=== PATIENT | female | born 1935 | race Caucasian/White ===

== ENCOUNTER 2016-10-31 12:57 | Emergency (ER) | payer MEDICARE, OTHER ==
[2016-10-31 13:04] VITALS: BP 136/57
[2016-10-31 13:43] LABS: CHLORIDE,CL 94 mmol/L (101-111); SODIUM,NA 132 mmol/L (135-145)
--- NOTE | 2016-10-31 13:47 | EDM.PDOC ---
ED HPI GENERAL MEDICAL PROBLEM - General Chief Complaint: Syncope Stated Complaint: IN BY AMBULANCE Time Seen by Provider: 10/31/16 13:30 Source of Information: Reports: Patient History Limitations: Reports: No Limitations - History of Present Illness INITIAL COMMENTS - FREE TEXT/NARRATIVE: This 81 yo female patient was brought to the ED by Danielle Archuleta due to a brief episode of syncope. The patient reports she just finished eating and was seated in her wheelchair when her symptoms started. The patient reports similar symptoms in the past, but has not had any episodes over the past several months. The patient reports she is feeling normal at this time. The patient currently lives in the [facility]. Onset: Today, Sudden Duration: Minutes:, Resolved Prior to Arrival Location: Reports: Generalized Quality: Reports: Other Severity: Moderate Improves with: Reports: None Worsens with: Reports: None Associated Symptoms: Reports: Syncope - Related Data Allergies Allergy/AdvReac Type Severity Reaction Status Date / Time chloramphenicol Allergy Mild Rash Verified 10/31/16 13:00 lisinopril Allergy Cough Verified 10/31/16 13:00 Home Meds: Home Meds RX: Aspirin [Halfprin] 81 mg PO DAILY 08/10/13 [History] RX: Atenolol [Tenormin] 75 mg PO DAILY 08/10/13 [History] RX: Insulin Aspart [NovoLOG] 8 unit SQ TID 08/10/13 [History] RX: Ascorbate Calcium [Vitamin C] 500 mg PO BID 09/06/13 [History] RX: Cranberry 500 mg PO DAILY 09/06/13 [History] RX: Multivitamin [Daily Multiple Vitamin] 1 tab PO DAILY 09/06/13 [History] RX: Magnesium Oxide 1 tab PO DAILY 12/01/14 [History] RX: Pantoprazole [ProTONIX] 40 mg PO DAILY 12/01/14 [History] RX: Acetaminophen [Tylenol Extra Strength] 500 mg PO QID PRN 09/17/15 [History] RX: Insulin NPH Human Isophane [Novolin N] 20 units SQ DAILY 02/13/16 [History] RX: Nystatin/Triamcinolone Crm [Mycolog Crm] 1 applic TOP ASDIRECTED PRN [History] RX: Acetaminophen [Tylenol] 650 mg PO Q4H PRN #0 tablet 02/14/16 [Rx] Furosemide [Furosemide] 20 mg PO DAILY 02/20/16 [History] Potassium Chloride [Klor-Con M10] 10 meq PO BIDMEALS 02/20/16 [History] RX: Losartan [Cozaar] 100 mg PO DAILY 02/20/16 [History] Past Medical History HEENT History: Reports: Impaired Vision, Other (See Below) Other HEENT History: wears glasses Cardiovascular History: Reports: High Cholesterol, Hypertension Respiratory History: Reports: None Gastrointestinal History: Reports: Fecal Incontinence Genitourinary History: Reports: Acute Renal Failure, Diabetic Nephropathy, Hydronephrosis, Pyelonephritis, Urinary Incontinence, UTI, Recurrent, Other ( See Below) Other Genitourinary History: stents 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 - Infectious Disease History Infectious Disease History: Reports: MRSA Other Infectious Disease History: ? - Past Surgical History Head Surgeries/Procedures: Reports: None HEENT Surgical History: Reports: Adenoidectomy, Cataract Surgery, Tonsillectomy Respiratory Surgical History: Reports: None Female Surgical History: Reports: Breast Biopsy Musculoskeletal Surgical History: Reports: Shoulder Surgery, Other (See Below) Oncologic Surgical History: Reports: Biopsy of Breast Social & Family History - Family History Family Medical History: Noncontributory Cardiac: Reports: OR Oncologic: Reports: Breast, Other (See Below) Other Oncologic Family History: mother-2 types - Tobacco Use Smoking Status *Q: Never Smoker Years of Tobacco use: 10 Used Tobacco, but Quit: Yes Month Tobacco Last Used: Second Hand Smoke Exposure: No - Caffeine Use Caffeine Use: Reports: Coffee - Alcohol Use Days Per Week of Alcohol Use: 0 - Recreational Drug Use Recreational Drug Use: No - Living Situation & Occupation Living situation: Reports: Occupation: Retired ED ROS GENERAL - Review of Systems Review Of Systems: ROS reveals no pertinent complaints other than HPI. - Physical Exam Exam: See Below Exam Limited By: No Limitations General Appearance: Alert, WD/WN, No Apparent Distress Eye Exam: Bilateral Eye: EOMI, Globe Laceration, PERRL Ears: Normal External Exam, Normal Canal, Hearing Grossly Normal, Normal TMs Nose: Normal Inspection, Normal Mucosa, No Blood Throat/Mouth: Normal Inspection, Normal Lips, Normal Teeth, Normal Gums, Normal Oropharynx, Normal Voice, No Airway Compromise Head Exam: Atraumatic, Normocephalic Neck: Normal Inspection, Supple, Non-Tender, Full Range of Motion Respiratory/Chest: No Respiratory Distress, Lungs Clear, Normal Breath Sounds, No Accessory Muscle Use, Chest Non-Tender Cardiovascular: Normal Peripheral Pulses, Regular Rate, Rhythm, No Edema, No Gallop, No JVD, No Murmur, No Rub GI/Abdominal: Normal Bowel Sounds, Soft, Non-Tender, No Organomegaly, No Distention, No Abnormal Bruit, No Mass (Female) Exam: Deferred Rectal (Female) Exam: Deferred Neuro Exam (Abbreviated): Alert, Oriented, CN II-XII Intact, Normal Cognition, No Motor/Sensory Deficits Back Exam: Normal Inspection, Full Range of Motion, NT Extremities: Normal Inspection, Normal Range of Motion, Non-Tender, No Pedal Edema, Normal Capillary Refill Psychiatric: Normal Affect, Normal Mood Skin Exam: Other (numerous lesions on her scalp and abdomen. The patient is currently under specialist care for lesions. ) Course - Vital Signs Last Recorded V/S: Last Vital Signs Temp 36.5 C 10/31/16 13:01 Pulse 63 10/31/16 13:01 Resp 20 10/31/16 13:01 BP 136/57 L 10/31/16 13:01 Pulse Ox 100 10/31/16 13:01 Orthostatic Blood Pressure [ 116/98 Standing] Orthostatic Blood Pressure [ 128/72 Sitting] Orthostatic Blood Pressure [ 138/42 Supine] - Orders/Labs/Meds Orders: Active Orders 24 hr Category Date Time Status EKG 12 Lead [EKG Documentation Completion] [RC] STAT Care 10/31/16 13:06 Active CBC WITH AUTO DIFF [HEME] Urgent Lab 10/31/16 13:10 Ordered MANUAL DIFFERENTIAL QA/NC [HEME] Urgent Lab 10/31/16 13:15 Results Labs: Laboratory Tests 10/31/16 10/31/16 Range/Units 13:15 13:15 WBC 11.7 H (5.0-10.0) 10^3/uL RBC 3.34 L (4.2-5.4) 10^6/uL Hgb 9.3 L (12.0-16.0) g/dL Hct 28.9 L (37.0-47.0) % MCV 86.5 (80-100) fL MCH 27.8 (27.0-34.0) pg MCHC 32.2 L (33.0-35.0) g/dL Plt Count 285 (150-450) 10^3/uL Neut % (Auto) 74.5 (42.2-75.2) % Lymph % (Auto) 16.0 L (20.5-50.1) % Josephine % (Auto) 8.3 H (2-8) % Eos % (Auto) 1.1 (1.0-3.0) % Baso % (Auto) 0.1 (0.0-1.0) % Add Manual Diff Yes Sodium 132 L (135-145) mmol/L Potassium 4.6 (3.6-5.0) mmol/L Chloride 94 L (101-111) mmol/L Carbon Dioxide 24.0 (21.0-31.0) mmol/L Anion Gap 18.6 BUN 34 H (7-18) mg/dL Creatinine 1.7 H (0.6-1.3) mg/dL Est Cr Clr Drug Dosing 23.88 mL/min Estimated GFR (MDRD) 29 BUN/Creatinine Ratio 20.00 Glucose 331 H (74-105) mg/dL Calcium 8.7 (8.4-10.2) mg/dl Total Bilirubin 0.6 (0.2-1.0) mg/dL AST 24 (10-42) IU/L ALT 21 (10-60) IU/L Alkaline Phosphatase 51 (42-121) IU/L Troponin I < 0.02 (0.00-0.02) ng/ml Total Protein 6.0 L (6.7-8.2) g/dl Albumin 2.9 L (3.2-5.5) g/dl Globulin 3.1 Albumin/Globulin Ratio 0.94 Departure - Departure Time of Disposition: 13:52 Disposition: Home, Self-Care 01 Condition: Fair Clinical Impression: Vasovagal syncope - Discharge Information Instructions: Syncope, [id number] Forms: ED Department Discharge Care Plan Goals: The patient was advised of the examination, lab and EKG results during the visit. The patient was encouraged to continue to monitor for any additional symptoms. If the patient has any additional symptoms or concerns, the patient should follow-up with her primary care facility or return to the emergency department. - My Orders Last 24 Hours: My Active Orders 10/31/16 13:06 EKG 12 Lead [EKG Documentation Completion] [RC] STAT 10/31/16 13:10 CBC WITH AUTO DIFF [HEME] Urgent 10/31/16 13:15 MANUAL DIFFERENTIAL QA/NC [HEME] Urgent - Assessment/Plan Last 24 Hours: My Active Orders 10/31/16 13:06 EKG 12 Lead [EKG Documentation Completion] [RC] STAT 10/31/16 13:10 CBC WITH AUTO DIFF [HEME] Urgent 10/31/16 13:15 MANUAL DIFFERENTIAL QA/NC [HEME] Urgent
--- NOTE | 2016-11-02 00:19 | EKG ---
10/31/2016 - NED TODD I reviewed the EKG and agree with the machine's reading. [facility] /[id number]
== END 2016-10-31 15:45 | disposition home or self-care (01) ==
LOC: DL.ED 12:57
DX: R55 Syncope and collapse (principal); E78.00 Pure hypercholesterolemia, unspecified; I10 Essential (primary) hypertension; M19.90 Unspecified osteoarthritis, unspecified site; E11.21 Type 2 diabetes mellitus with diabetic nephropathy; Z88.8 Allergy status to other drugs, medicaments and biological substances; Z79.899 Other long term (current) drug therapy; Z79.82 Long term (current) use of aspirin; Z79.4 Long term (current) use of insulin; Z87.440 Personal history of urinary (tract) infections; Z98.49 Cataract extraction status, unspecified eye; Z98.890 Other specified postprocedural states
CPT/HCPCS: 36415; 80053; 84484; 85025; 93005; 93010; 99282; 99284

== ENCOUNTER 2017-03-03 12:34 | Emergency (ER) | payer MEDICARE, OTHER ==
[2017-03-03 12:57] VITALS: BP 148/58
--- NOTE | 2017-03-03 13:06 | EDM.PDOC ---
ED HPI GENERAL MEDICAL PROBLEM - General Chief Complaint: General Stated Complaint: AM Time Seen by Provider: 03/03/17 13:01 Source of Information: Reports: Patient, EMS Notes Reviewed History Limitations: Reports: No Limitations - History of Present Illness INITIAL COMMENTS - FREE TEXT/NARRATIVE: 81 yo white female w/ syncopal episode while in wheelchair. Symptoms for last 2 years and this is the second in one week. The episodes occur when she is at lunch sitting in wheel chair. Today the episode lasted 15 mins. and she awoke glassy eyed and slight drool to left side of mouth. Pt states she has had no work-up to determine cause Onset: Today Onset Date: 03/03/17 Onset Time: 11:40 Duration: Hour(s): Location: Reports: Generalized Severity: Moderate Improves with: Reports: None Worsens with: Reports: None Context: Reports: Other (syncope) Associated Symptoms: Reports: No Other Symptoms - Related Data Allergies Allergy/AdvReac Type Severity Reaction Status Date / Time chloramphenicol Allergy Mild Rash Verified 10/31/16 13:00 lisinopril Allergy Cough Verified 10/31/16 13:00 Home Meds: Home Meds Aspirin [Halfprin] 81 mg PO DAILY 08/10/13 [History] Atenolol [Tenormin] 100 mg PO DAILY 08/10/13 [History] Insulin Aspart [NovoLOG] 8 unit SQ TID 08/10/13 [History] Ascorbate Calcium [Vitamin C] 500 mg PO BID 09/06/13 [History] Cranberry 500 mg PO DAILY 09/06/13 [History] Multivitamin [Daily Multiple Vitamin] 1 tab PO DAILY 09/06/13 [History] Magnesium Oxide 1 tab PO BID 12/01/14 [History] Pantoprazole [ProTONIX] 40 mg PO DAILY 12/01/14 [History] Acetaminophen [Tylenol Extra Strength] 1,000 mg PO QID PRN 09/17/15 [History] Insulin NPH Human Isophane [Novolin N] 20 units SQ DAILY 02/13/16 [History] Nystatin/Triamcinolone Crm [Mycolog Crm] 1 applic TOP ASDIRECTED PRN 02/13/16 [ History] Acetaminophen [Tylenol] 650 mg PO Q4H PRN #0 tablet 02/14/16 [Rx] Furosemide [Furosemide] 40 mg PO DAILY 02/20/16 [History] Losartan [Cozaar] 100 mg PO DAILY 02/20/16 [History] Potassium Chloride [Klor-Con M10] 10 meq PO BIDMEALS 02/20/16 [History] Doxycycline Hyclate 100 mg PO BID 03/03/17 [History] azaTHIOprine [Imuran] 50 mg PO DAILY 03/03/17 [History] hydrOXYzine HCl [Atarax] 10 mg PO PRN 03/03/17 [History] predniSONE [Prednisone] 17.5 mg PO DAILY 03/03/17 [History] Past Medical History HEENT History: Reports: Cataract, Sinusitis Cardiovascular History: Reports: High Cholesterol, Hypertension Respiratory History: Reports: None Gastrointestinal History: Reports: Fecal Incontinence Genitourinary History: Reports: Acute Renal Failure, Diabetic Nephropathy, Hydronephrosis, Pyelonephritis, Urinary Incontinence, UTI, Recurrent, Other ( See Below) Other Genitourinary History: nephrostomy tubes, ureterostomy 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: Musculoskeletal History: Reports: Arthritis, Other (See Below) Other Musculoskeletal History: DJD Neurological History: Reports: None Psychiatric History: Reports: None Endocrine/Metabolic History: Reports: Diabetes, Type II, IDDM Hematologic History: Reports: None Immunologic History: Reports: None Oncologic (Cancer) History: Reports: Squamous Cell Carcinoma Other Oncologic History: questionable L) breast ca, SCC-lip Dermatologic History: Reports: Eczema, Other (See Below) Other Dermatologic History: reaction to metal chain (necklace) - Infectious Disease History Infectious Disease History: Reports: MRSA Other Infectious Disease History: ? - Past Surgical History Head Surgeries/Procedures: Reports: None HEENT Surgical History: Reports: Adenoidectomy, Cataract Surgery, Tonsillectomy Respiratory Surgical History: Reports: None Female Surgical History: Reports: Breast Biopsy Musculoskeletal Surgical History: Reports: Shoulder Surgery, Other (See Below) Oncologic Surgical History: Reports: Biopsy of Breast Social & Family History - Family History Family Medical History: Noncontributory Cardiac: Reports: [place] Oncologic: Reports: Breast, Other (See Below) Other Oncologic Family History: mother-2 types - Tobacco Use Smoking Status *Q: Never Smoker Years of Tobacco use: 10 Used Tobacco, but Quit: Yes Month Tobacco Last Used: Second Hand Smoke Exposure: No - Caffeine Use Caffeine Use: Reports: Coffee - Alcohol Use Days Per Week of Alcohol Use: 0 - Recreational Drug Use Recreational Drug Use: No - Living Situation & Occupation Living situation: Reports: Occupation: Retired ED ROS GENERAL - Review of Systems Review Of Systems: See Below Constitutional: Reports: No Symptoms HEENT: Reports: No Symptoms Respiratory: Reports: No Symptoms Cardiovascular: Reports: No Symptoms Endocrine: Reports: No Symptoms GI/Abdominal: Reports: No Symptoms : Reports: No Symptoms Musculoskeletal: Reports: No Symptoms Skin: Reports: No Symptoms Neurological: Reports: Syncope Psychiatric: Reports: No Symptoms Hematologic/Lymphatic: Reports: No Symptoms Immunologic: Reports: No Symptoms - Physical Exam Exam: See Below Exam Limited By: No Limitations General Appearance: Alert, WD/WN, No Apparent Distress Eye Exam: Bilateral Eye: EOMI, PERRL Ears: Normal External Exam Nose: Normal Inspection Throat/Mouth: Normal Inspection Head Exam: Atraumatic, Normocephalic Neck: Normal Inspection, Supple Respiratory/Chest: No Respiratory Distress, Lungs Clear Cardiovascular: Normal Peripheral Pulses, Regular Rate, Rhythm GI/Abdominal: Normal Bowel Sounds, Soft, Non-Tender Neuro Exam (Abbreviated): Alert, Oriented, CN II-XII Intact, Normal Cognition Back Exam: Normal Inspection Extremities: Pedal Edema (1-2+) Psychiatric: Normal Affect, Normal Mood Skin Exam: Warm, Dry, Intact, Normal Color, No Rash Course - Vital Signs Last Recorded V/S: Last Vital Signs Temp 36.6 C 03/03/17 12:54 Pulse 66 03/03/17 12:54 Resp 18 03/03/17 12:54 BP 148/58 H 03/03/17 12:54 Pulse Ox 100 03/03/17 12:54 - Orders/Labs/Meds Orders: Active Orders 24 hr Category Date Time Status Head wo Cont [CT] Urgent Exams 03/03/17 13:07 Taken CORTISOL [REF] Stat Lab 03/03/17 13:20 Received Sodium Chloride 0.9% [Normal Saline] 500 ml Med 03/03/17 13:15 Active IV ASDIRECTED Medication Orders Sodium Chloride (Normal Saline) 500 mls @ 100 mls/hr IV ASDIRECTED KEYA Labs: Laboratory Tests 03/03/17 03/03/17 03/03/17 Range/Units 13:20 13:20 14:40 WBC 11.4 H (5.0-10.0) 10^3/uL RBC 3.28 L (4.2-5.4) 10^6/uL Hgb 9.5 L (12.0-16.0) g/dL Hct 30.2 L (37.0-47.0) % MCV 92.1 D (80-100) fL MCH 29.0 (27.0-34.0) pg MCHC 31.5 L (33.0-35.0) g/dL Plt Count 316 (150-450) 10^3/uL Neut % (Auto) 70.9 (42.2-75.2) % Lymph % (Auto) 16.3 L (20.5-50.1) % Taylor % (Auto) 11.5 H (2-8) % Eos % (Auto) 1.0 (1.0-3.0) % Baso % (Auto) 0.3 (0.0-1.0) % Sodium 135 (135-145) mmol/L Potassium 3.5 L (3.6-5.0) mmol/L Chloride 96 L (101-111) mmol/L Carbon Dioxide 28.0 (21.0-31.0) mmol/L Anion Gap 14.5 BUN 32 H (7-18) mg/dL Creatinine 1.6 H (0.6-1.3) mg/dL Est Cr Clr Drug Dosing 25.38 mL/min Estimated GFR (MDRD) 31 BUN/Creatinine Ratio 20.00 Glucose 67 L (74-105) mg/dL POC Glucose 50 L (83-110) mg/dl Calcium 8.9 (8.4-10.2) mg/dl Total Bilirubin 0.5 (0.2-1.0) mg/dL AST 36 (10-42) IU/L ALT 28 (10-60) IU/L Alkaline Phosphatase 83 (42-121) IU/L Total Protein 6.2 L (6.7-8.2) g/dl Albumin 3.0 L (3.2-5.5) g/dl Globulin 3.2 Albumin/Globulin Ratio 0.94 Meds: Medications Generic Name Dose Route Start Last Admin Trade Name Freq PRN Reason Stop Dose Admin Sodium Chloride 500 mls @ 100 mls/hr 03/03/17 13:15 Normal Saline IV ASDIRECTED KEYA Departure - Departure Time of Disposition: 14:47 Disposition: Home, Self-Care 01 Condition: Good Clinical Impression: CKD (chronic kidney disease) stage 4, GFR 15-29 ml/min Syncope Qualifiers: Syncope type: unspecified Qualified Code(s): R55 - Syncope and collapse Anemia Qualifiers: Anemia type: unspecified type Qualified Code(s): D64.9 - Anemia, unspecified Malnutrition Qualifiers: Malnutrition type: unspecified type Qualified Code(s): E46 - Unspecified protein-calorie malnutrition - Discharge Information Forms: ED Department Discharge Additional Instructions: Rest Eat all meals F/U w/ PCP Sunday ( Son states he will take patient to her PCP on Sunday - My Orders Last 24 Hours: My Active Orders 03/03/17 13:07 Head wo Cont [CT] Urgent 03/03/17 13:15 Sodium Chloride 0.9% [Normal Saline] 500 ml IV ASDIRECTED 03/03/17 13:20 CORTISOL [REF] Stat - Assessment/Plan Last 24 Hours: My Active Orders 03/03/17 13:07 Head wo Cont [CT] Urgent 03/03/17 13:15 Sodium Chloride 0.9% [Normal Saline] 500 ml IV ASDIRECTED 03/03/17 13:20 CORTISOL [REF] Stat
[2017-03-03] MEDS ORDERED: Sodium Chloride 0.9% 500 ML IV SCH (13:15)
--- NOTE | 2017-03-06 11:31 | EKG ---
03/03/2017 - PEYTONNED GUILLERMO - TIME: 1318 hours. EKG shows normal sinus rhythm. There is borderline left axis deviation. [facility] /[id number]
== END 2017-03-03 15:10 | disposition home or self-care (01) ==
LOC: DL.ED 12:34
DX: R55 Syncope and collapse (principal); I12.9 Hypertensive chronic kidney disease with stage 1 through stage 4 chronic kidney disease, or unspecified chronic kidney disease; E11.22 Type 2 diabetes mellitus with diabetic chronic kidney disease; N18.4 Chronic kidney disease, stage 4 (severe); D64.9 Anemia, unspecified; E46 Unspecified protein-calorie malnutrition; Z88.8 Allergy status to other drugs, medicaments and biological substances; Z79.82 Long term (current) use of aspirin; Z79.4 Long term (current) use of insulin; Z79.899 Other long term (current) drug therapy; Z87.891 Personal history of nicotine dependence
CPT/HCPCS: 36415; 70450; 80053; 82533; 82962; 85025; 99284

== ENCOUNTER 2017-12-30 14:07 | Emergency (ER) | payer MEDICARE, OTHER ==
[2017-12-30 14:45] VITALS: BP 148/83
--- NOTE | 2017-12-30 15:50 | EDM.PDOC ---
ED HPI GENERAL MEDICAL PROBLEM - General Chief Complaint: Lower Extremity Injury/Pain Stated Complaint: FELL OUT OF WHEELCHAIR [id number] Time Seen by Provider: 12/30/17 16:05 Source of Information: Reports: Patient, Family, RN, RN Notes Reviewed History Limitations: Reports: No Limitations - History of Present Illness INITIAL COMMENTS - FREE TEXT/NARRATIVE: Pt to ER with her son with c/o a fall on Sunday evening. Pt states she is wheelchair bound due to diabetic neuropathy and previous broken hip, and lives with her son. Patient states she was sitting in the kitchen cleaning beans from the garden when she dropped something and leaned over to pick it up. She fell out of her wheelchair and laid on the floor until was found by her son (an hour or so). Patient denies hitting her head or being knocked out. Patient states she felt well on Sunday, no pain. States when she woke up this morning she was having some pain with transferring. Patient has bilateral nephrostomy tubes. Patient denies sever discomfort at this time. Onset: Sudden Onset Date: 12/28/17 Right Upper Leg Pain Score (Numeric/FACES): 7 - Related Data Allergies Allergy/AdvReac Type Severity Reaction Status Date / Time chloramphenicol Allergy Mild Rash Verified 10/31/16 13:00 lisinopril Allergy Cough Verified 10/31/16 13:00 Home Meds: Home Meds Aspirin [Halfprin] 81 mg PO DAILY 08/10/13 [History] Atenolol [Tenormin] 100 mg PO DAILY 08/10/13 [History] Insulin Aspart [NovoLOG] 8 unit SQ TID 08/10/13 [History] Ascorbate Calcium [Vitamin C] 500 mg PO BID 09/06/13 [History] Cranberry 500 mg PO DAILY 09/06/13 [History] Multivitamin [Daily Multiple Vitamin] 1 tab PO DAILY 09/06/13 [History] Magnesium Oxide 1 tab PO BID 12/01/14 [History] Pantoprazole [ProTONIX] 40 mg PO DAILY 12/01/14 [History] Acetaminophen [Tylenol Extra Strength] 1,000 mg PO QID PRN 09/17/15 [History] Insulin NPH Human Isophane [Novolin N] 20 units SQ DAILY 02/13/16 [History] Nystatin/Triamcinolone Crm [Mycolog Crm] 1 applic TOP ASDIRECTED PRN 02/13/16 [ History] Acetaminophen [Tylenol] 650 mg PO Q4H PRN #0 tablet 02/14/16 [Rx] Furosemide 40 mg PO DAILY 02/20/16 [History] Losartan [Cozaar] 100 mg PO DAILY 02/20/16 [History] Potassium Chloride [Klor-Con M10] 10 meq PO BIDMEALS 02/20/16 [History] Doxycycline Hyclate 100 mg PO BID 03/03/17 [History] azaTHIOprine [Imuran] 50 mg PO DAILY 03/03/17 [History] hydrOXYzine HCl [Atarax] 10 mg PO PRN 03/03/17 [History] predniSONE [Prednisone] 17.5 mg PO DAILY 03/03/17 [History] Past Medical History HEENT History: Reports: Cataract, Impaired Vision, Sinusitis Other HEENT History: wears glasses Cardiovascular History: Reports: High Cholesterol, Hypertension Respiratory History: Reports: None Gastrointestinal History: Reports: Fecal Incontinence, GERD Genitourinary History: Reports: Acute Renal Failure, Diabetic Nephropathy, Hydronephrosis, Pyelonephritis, Urinary Incontinence, UTI, Recurrent, Other ( See Below) Other Genitourinary History: nephrostomy tubes, ureterostomy [employer]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: Musculoskeletal History: Reports: Arthritis, Other (See Below) Other Musculoskeletal History: DJD Neurological History: Reports: None Psychiatric History: Reports: None Endocrine/Metabolic History: Reports: Diabetes, Type II, IDDM Hematologic History: Reports: None Immunologic History: Reports: None Oncologic (Cancer) History: Reports: Squamous Cell Carcinoma Other Oncologic History: questionable L) breast ca, SCC-lip Dermatologic History: Reports: Eczema, Other (See Below) Other Dermatologic History: reaction to metal chain (necklace) - Infectious Disease History Infectious Disease History: Reports: MRSA Other Infectious Disease History: ? - Past Surgical History Head Surgeries/Procedures: Reports: None HEENT Surgical History: Reports: Adenoidectomy, Cataract Surgery, Tonsillectomy Respiratory Surgical History: Reports: None GI Surgical History: Reports: Appendectomy Female Surgical History: Reports: Breast Biopsy Musculoskeletal Surgical History: Reports: Shoulder Surgery, Other (See Below) Oncologic Surgical History: Reports: Biopsy of Breast Social & Family History - Family History Family Medical History: Noncontributory Cardiac: Reports: [place] Oncologic: Reports: Breast, Other (See Below) Other Oncologic Family History: mother-2 types - Tobacco Use Smoking Status *Q: Never Smoker - Caffeine Use Caffeine Use: Reports: Coffee - Recreational Drug Use Recreational Drug Use: No - Living Situation & Occupation Living situation: Reports: Occupation: Retired Review of Systems - Review of Systems Review Of Systems: ROS reveals no pertinent complaints other than HPI. ED EXAM, GENERAL - Physical Exam Exam: See Below Exam Limited By: No Limitations General Appearance: Alert, WD/WN, No Apparent Distress Eye Exam: Bilateral Eye: EOMI, Normal Inspection, Other (Patient states her vision is poor due to the diabetes) Ears: Normal External Exam Nose: Normal Inspection Throat/Mouth: Normal Inspection, Normal Voice, No Airway Compromise Head: Atraumatic, Normocephalic Neck: Normal Inspection, Supple, Non-Tender Respiratory/Chest: No Respiratory Distress, No Accessory Muscle Use, Chest Non- Tender, Decreased Breath Sounds Cardiovascular: Normal Peripheral Pulses, No Edema, No Gallop, No JVD, No Murmur , No Rub, Irregularly Irregular Peripheral Pulses: 1+: Radial (L), Radial (R), Dorsalis Pedis (L), Dorsalis Pedis (R) GI/Abdominal: Normal Bowel Sounds, Soft, Non-Tender, No Organomegaly, No Distention, No Abnormal Bruit, No Mass, Pelvis Stable (Female) Exam: Deferred Rectal (Female) Exam: Deferred Back Exam: Normal Inspection, Full Range of Motion Extremities: Normal Inspection, Normal Range of Motion, Non-Tender, No Pedal Edema, Normal Capillary Refill Neurological: Alert, Oriented, CN II-XII Intact, Normal Cognition, Normal Gait, Normal Reflexes, No Motor/Sensory Deficits Psychiatric: Normal Affect, Normal Mood Skin Exam: Warm, Dry, Intact, Normal Color, No Rash Lymphatic: No Adenopathy Course - Vital Signs Last Recorded V/S: Last Vital Signs Temp 97.1 F 12/30/17 14:44 Pulse 71 12/30/17 14:44 Resp 14 12/30/17 14:44 BP 148/83 H 12/30/17 14:44 Pulse Ox 95 12/30/17 14:44 - Radiology Interpretation Free Text/Narrative:: Pelvis xray: FINDINGS: Bones/joints: Right hip replacement. No hardware complication. Moderate joint space narrowing in the left hip joint. Acute fractures in the right superior and inferior pubic rami. Old fractures in the left superior and inferior rami. Degenerative changes in the lumbar spine. No dislocation. Soft tissues: Calcified uterine fibroids. IMPRESSION: Acute fractures Right hip: FINDINGS: Bones/joints: Intact right hip replacement. Old avulsion of the greater trochanter versus heterotopic calcification. Acute superior and inferior right pubic rami fractures. No dislocation. Soft tissues: Unremarkable. IMPRESSION: Acute fractures Intact hardware Right femur xray: FINDINGS: Bones/joints: Intact hardware. No acute fracture. No dislocation. Soft tissues: Unremarkable. IMPRESSION: No acute findings. See rad report - Re-Assessments/Exams Free Text/Narrative Re-Assessment/Exam: 12/31/17 10:02 Discussed patient case with Dr. Morgan. He states the pelvic fracture is stable and the patient can follow up with him in [place] on SunJan 09 with repeat xrays. Departure - Departure Time of Disposition: 16:23 Disposition: Home, Self-Care 01 Condition: Fair Clinical Impression: Pelvic fracture Qualifiers: Encounter type: initial encounter Pelvic bone location: ischium Fracture type: closed Fracture morphology: unspecified fracture morphology Fracture alignment: nondisplaced Laterality: right Qualified Code(s): S32.601A - Unspecified fracture of right ischium, initial encounter for closed fracture - Discharge Information *PRESCRIPTION DRUG MONITORING PROGRAM REVIEWED*: No *COPY OF PRESCRIPTION DRUG MONITORING REPORT IN PATIENT AMAURI: No Instructions: Hip Pain, Simple Pelvic Fracture, Adult Referrals: PCP,None [Primary Care Provider] - Forms: ED Department Discharge Additional Instructions: Please call [facility] tomorrow to make an appointment to see Dr. Morgan in [place] on Jan 09. You will need another x-ray on that date. Rest Return to the ER with any further problems.
== END 2017-12-30 16:37 | disposition home or self-care (01) ==
LOC: DL.ED 14:07
DX: S32.501A Unspecified fracture of right pubis, initial encounter for closed fracture (principal); S32.591A Other specified fracture of right pubis, initial encounter for closed fracture; E11.40 Type 2 diabetes mellitus with diabetic neuropathy, unspecified; I10 Essential (primary) hypertension; Z88.8 Allergy status to other drugs, medicaments and biological substances; Z79.82 Long term (current) use of aspirin; Z79.4 Long term (current) use of insulin; W17.89XA Other fall from one level to another, initial encounter
CPT/HCPCS: 72170; 99283; 99284

== ENCOUNTER 2018-08-23 10:48 | Observation (INO) | payer MEDICARE, OTHER ==
--- NOTE | 2018-08-23 11:18 | EDM.PDOC ---
ED HPI GENERAL MEDICAL PROBLEM - General Chief Complaint: Respiratory Problem Stated Complaint: COUGH, WEAK, NOT EATING Time Seen by Provider: 08/23/18 11:17 Source of Information: Reports: Patient, Family, Old Records, RN, RN Notes Reviewed History Limitations: Reports: No Limitations - History of Present Illness INITIAL COMMENTS - FREE TEXT/NARRATIVE: Pt presents to ER with c/o 1 week duration of cough and progressively worsening generalized weakness. The cough is occasionally productive with thick dark yellow sputum. Pt states she went to clinic 4 days ago and was treated empirically with Levaquin for suspected pneumonia, but had no labs or chest x- ray. She is unsure if she has had fevers. Her appetite is very decreased. Denies chest pain, edema, N/V, or any falls. Onset: Gradual Duration: Week(s): (1) Location: Reports: Chest Quality: Reports: Other (Denies pain) Severity: Severe Improves with: Reports: None Worsens with: Reports: None Context: Denies: Sick Contact Associated Symptoms: Reports: No Other Symptoms - Related Data Allergies Allergy/AdvReac Type Severity Reaction Status Date / Time chloramphenicol Allergy Mild Rash Verified 10/31/16 13:00 lisinopril Allergy Cough Verified 10/31/16 13:00 Home Meds: Home Meds Aspirin [Halfprin] 81 mg PO DAILY 08/10/13 [History] Atenolol [Tenormin] 100 mg PO DAILY 08/10/13 [History] Insulin Aspart [NovoLOG] 8 unit SQ TID 08/10/13 [History] Ascorbate Calcium [Vitamin C] 500 mg PO BID 09/06/13 [History] Cranberry 500 mg PO DAILY 09/06/13 [History] Multivitamin [Daily Multiple Vitamin] 1 tab PO DAILY 09/06/13 [History] Magnesium Oxide 1 tab PO BID 12/01/14 [History] Pantoprazole [ProTONIX] 40 mg PO DAILY 12/01/14 [History] Acetaminophen [Tylenol Extra Strength] 1,000 mg PO QID PRN 09/17/15 [History] Insulin NPH Human Isophane [Novolin N] 20 units SQ DAILY 02/13/16 [History] Nystatin/Triamcinolone Crm [Mycolog Crm] 1 applic TOP ASDIRECTED PRN 02/13/16 [ History] Acetaminophen [Tylenol] 650 mg PO Q4H PRN #0 tablet 02/14/16 [Rx] Furosemide 40 mg PO DAILY 02/20/16 [History] Losartan [Cozaar] 100 mg PO DAILY 02/20/16 [History] Potassium Chloride [Klor-Con M10] 10 meq PO BIDMEALS 02/20/16 [History] Doxycycline Hyclate 100 mg PO BID 03/03/17 [History] azaTHIOprine [Imuran] 50 mg PO DAILY 03/03/17 [History] hydrOXYzine HCl [Atarax] 10 mg PO DAILY PRN 03/03/17 [History] predniSONE [Prednisone] 17.5 mg PO DAILY 03/03/17 [History] Levofloxacin 250 mg PO DAILY 08/23/18 [History] Past Medical History HEENT History: Reports: Cataract, Impaired Vision, Sinusitis Other HEENT History: wears glasses Cardiovascular History: Reports: High Cholesterol, Hypertension Respiratory History: Reports: None Gastrointestinal History: Reports: Fecal Incontinence, GERD Genitourinary History: Reports: Acute Renal Failure, Diabetic Nephropathy, Hydronephrosis, Pyelonephritis, Urinary Incontinence, UTI, Recurrent, Other ( See Below) Other Genitourinary History: nephrostomy tubes, ureterostomy [employer]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: 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: Musculoskeletal History: Reports: Arthritis, Other (See Below) Other Musculoskeletal History: DJD Neurological History: Reports: None Psychiatric History: Reports: None Endocrine/Metabolic History: Reports: Diabetes, Type II, IDDM Hematologic History: Reports: None Immunologic History: Reports: None Oncologic (Cancer) History: Reports: Squamous Cell Carcinoma Other Oncologic History: questionable L) breast ca, SCC-lip Dermatologic History: Reports: Eczema, Other (See Below) Other Dermatologic History: reaction to metal chain (necklace) - Infectious Disease History Infectious Disease History: Reports: MRSA Other Infectious Disease History: ? - Past Surgical History Head Surgeries/Procedures: Reports: None HEENT Surgical History: Reports: Adenoidectomy, Cataract Surgery, Tonsillectomy Respiratory Surgical History: Reports: None GI Surgical History: Reports: Appendectomy Female Surgical History: Reports: Breast Biopsy Musculoskeletal Surgical History: Reports: Shoulder Surgery, Other (See Below) Oncologic Surgical History: Reports: Biopsy of Breast Social & Family History - Family History Family Medical History: Noncontributory Cardiac: Reports: [place] Oncologic: Reports: Breast, Other (See Below) Other Oncologic Family History: mother-2 types - Tobacco Use Smoking Status *Q: Never Smoker - Caffeine Use Caffeine Use: Reports: None - Recreational Drug Use Recreational Drug Use: No - Living Situation & Occupation Living situation: Reports: Occupation: Retired ED ROS GENERAL - Review of Systems Review Of Systems: ROS reveals no pertinent complaints other than HPI. ED EXAM, GENERAL - Physical Exam Exam: See Below Exam Limited By: No Limitations General Appearance: Alert, No Apparent Distress, Other (Frail elderly appearing female) Eye Exam: Bilateral Eye: Normal Inspection Nose: Normal Inspection, Normal Mucosa, No Blood Throat/Mouth: Normal Lips, Normal Teeth, Normal Oropharynx, Normal Voice Head: Atraumatic, Normocephalic Neck: Normal Inspection, Supple, Non-Tender, Full Range of Motion Respiratory/Chest: No Respiratory Distress, No Accessory Muscle Use, Chest Non- Tender, Decreased Breath Sounds, Crackles, Rhonchi (bibasilar). No: Wheezing Cardiovascular: Regular Rate, Rhythm, Bradycardia GI/Abdominal: Normal Bowel Sounds, Soft, Non-Tender, No Distention Back Exam: Normal Inspection Extremities: Normal Range of Motion, Non-Tender, Normal Capillary Refill, Pedal Edema (Trace B/L (chronic/stable per pt)) Neurological: Alert, Oriented, No Motor/Sensory Deficits Psychiatric: Normal Mood Skin Exam: Warm, Dry, Intact Course - Vital Signs Last Recorded V/S: Last Vital Signs Temp 36.2 C 08/23/18 11:01 Pulse 59 L 08/23/18 11:01 Resp 18 08/23/18 11:01 BP 115/58 L 08/23/18 11:01 Pulse Ox 92 L 08/23/18 11:01 - Orders/Labs/Meds Orders: Active Orders 24 hr Category Date Time Status B-TYPE NATRIURETIC PEPTIDE,BNP [CHEM] Stat Lab 08/23/18 11:05 Received CULTURE BLOOD [BC] Stat Lab 08/23/18 11:48 Ordered CULTURE BLOOD [BC] Stat Lab 08/23/18 11:48 Ordered LACTIC ACID [CHEM] Stat Lab 08/23/18 11:48 Ordered Piperacillin/Tazobactam [Zosyn] 2.25 gm Med 08/23/18 11:41 Active Sodium Chloride 0.9% [Normal Saline] 50 ml IV ONETIME Blood Culture x2 Reflex Set [OM.PC] Stat Oth 08/23/18 11:47 Ordered Medication Orders Piperacillin Sod/Tazobactam (Sod 2.25 gm/ Sodium Chloride) 50 mls @ 100 mls/hr IV ONETIME ONE Stop: 08/23/18 12:10 Labs: Laboratory Tests 08/23/18 08/23/18 Range/Units 11:05 11:05 WBC 12.2 H (5.0-10.0) 10^3/uL RBC 3.26 L (4.2-5.4) 10^6/uL Hgb 10.0 L (12.0-16.0) g/dL Hct 30.4 L (37.0-47.0) % MCV 93.3 (80-100) fL MCH 30.7 (27.0-34.0) pg MCHC 32.9 L (33.0-35.0) g/dL Plt Count 465 H D (150-450) 10^3/uL Neut % (Auto) 87.9 H (42.2-75.2) % Lymph % (Auto) 5.5 L (20.5-50.1) % [place] % (Auto) 6.0 (2-8) % Eos % (Auto) 0.5 L (1.0-3.0) % Baso % (Auto) 0.1 (0.0-1.0) % Add Manual Diff Yes Neutrophils % (Manual) 76 H (42-75) % Band Neutrophils % 8 % Lymphocytes % (Manual) 13 L (20-50) % Monocytes % (Manual) 3 (2-8) % Hypochromasia 1+ slight Sodium 132 L (135-145) mmol/L Potassium 4.3 (3.6-5.0) mmol/L Chloride 95 L (101-111) mmol/L Carbon Dioxide 21.0 (21.0-31.0) mmol/L Anion Gap 20.3 BUN 57 H D (7-18) mg/dL Creatinine 2.0 H (0.6-1.3) mg/dL Est Cr Clr Drug Dosing 18.84 mL/min Estimated GFR (MDRD) 24 BUN/Creatinine Ratio 28.50 Glucose 243 H (74-105) mg/dL Calcium 9.3 (8.4-10.2) mg/dl Total Bilirubin 0.7 (0.2-1.0) mg/dL AST 28 (10-42) IU/L ALT 14 (10-60) IU/L Alkaline Phosphatase 63 (42-121) IU/L Total Protein 7.7 (6.7-8.2) g/dl Albumin 2.9 L (3.2-5.5) g/dl Globulin 4.8 Albumin/Globulin Ratio 0.60 Meds: Medications Generic Name Dose Route Start Last Admin Trade Name Freq PRN Reason Stop Dose Admin Piperacillin Sod/Tazobactam 50 mls @ 100 mls/hr 08/23/18 11:41 Sod 2.25 gm/ Sodium Chloride IV 08/23/18 12:10 ONETIME ONE - Radiology Interpretation Free Text/Narrative:: CXR: B/L basilar infiltrates, see Rad. report. Departure - Departure Time of Disposition: 11:59 (admitted to Dr. Mccartney) Disposition: Admitted As Inpatient 66 Condition: Fair, Serious Clinical Impression: Pneumonia Qualifiers: Pneumonia type: due to unspecified organism Laterality: bilateral Lung location : lower lobe of lung Qualified Code(s): J18.1 - Lobar pneumonia, unspecified organism - Discharge Information *PRESCRIPTION DRUG MONITORING PROGRAM REVIEWED*: No *COPY OF PRESCRIPTION DRUG MONITORING REPORT IN PATIENT AMAURI: No Forms: ED Department Discharge - My Orders Last 24 Hours: My Active Orders 08/23/18 11:05 B-TYPE NATRIURETIC PEPTIDE,BNP [CHEM] Stat 08/23/18 11:41 Piperacillin/Tazobactam [Zosyn] 2.25 gm Sodium Chloride 0.9% [Normal Saline] 50 ml IV ONETIME 08/23/18 11:47 Blood Culture x2 Reflex Set [OM.PC] Stat 08/23/18 11:48 CULTURE BLOOD [BC] Stat CULTURE BLOOD [BC] Stat LACTIC ACID [CHEM] Stat - Assessment/Plan Last 24 Hours: My Active Orders 08/23/18 11:05 B-TYPE NATRIURETIC PEPTIDE,BNP [CHEM] Stat 08/23/18 11:41 Piperacillin/Tazobactam [Zosyn] 2.25 gm Sodium Chloride 0.9% [Normal Saline] 50 ml IV ONETIME 08/23/18 11:47 Blood Culture x2 Reflex Set [OM.PC] Stat 08/23/18 11:48 CULTURE BLOOD [BC] Stat CULTURE BLOOD [BC] Stat LACTIC ACID [CHEM] Stat
[2018-08-23 11:37] LABS: ANION GAP 20.3
[2018-08-23] MEDS ORDERED: Piperacillin/Tazobactam 2.25 GM in Sodium Chloride 0.9% 50 ML IV ONE (11:41)
--- NOTE | 2018-08-23 11:52 | CR ---
Clinical history: 83-year-old female clinical "cough". Interpretation: Abnormal. Patchy new multilobar atelectasis/infiltrate since 05 March 2016 comparison film i.e. not consolidative pneumonitis involving the axillary segment right upper lobe and infiltrate/atelectasis both lower lobes. Normal cardiac silhouette without cephalization of flow signs of alveolar edema or dependent effusion. No lung mass or hilar lymphadenopathy. 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 CONCLUSION: Multilevel lobar atelectasis/pneumonia.
[2018-08-23] MEDS ORDERED: Magnesium Hydroxide 400 MG/5 ML Susp 30 ML Cup PO PRN (13:43)
[2018-08-23] MEDS ORDERED: Acetaminophen 325 MG Tab PO PRN (13:43)
[2018-08-23] MEDS ORDERED: Bisacodyl 10 MG Supp RECTAL PRN (13:43)
[2018-08-23] MEDS ORDERED: Acetaminophen 500 MG Tab PO PRN (14:00)
--- NOTE | 2018-08-23 14:00 | PCM.HP ---
H&P History of Present Illness - General Date of Service: 08/23/18 Admit Problem/Dx: Admission Diagnosis/Problem Admission Diagnosis/Problem Pneumonia Source of Information: Patient History Limitations: Reports: No Limitations - History of Present Illness Initial Comments - Free Text/Narative: Frances is 83 y/o F with PMH of DM, HTN who presents with cough of one week duration and this has been getting progressively worse. She coughs through the day and night. Cough is minimum of sputum production. She notes SOB with activity. No fever or chills. No sore throat, nasal congestion. She denies night sweat, weight loss but reports poor appetite and increasing weakness. She leaves with her family and her grand kids were recently treated for flu symptoms. She was seen by her PCP 4 days and treated with Levaquin with o improvement. She has no N/V abdominal pain, diarrhea. In the ER vitals were unremarkable. Cxr showed b/l lower infiltrate. Wbc 12. patient is being admitted for further management. Onset of Symptoms: Reports: Gradual Duration of Symptoms: Reports: Day(s): Location: Reports: Chest Quality: Reports: Ache Severity: Moderate Improves with: Reports: None Worsens with: Reports: None Context: Reports: Other (cough) Associated Symptoms: Reports: No Other Symptoms - Related Data Allergies/Adverse Reactions: Allergies Allergy/AdvReac Type Severity Reaction Status Date / Time chloramphenicol Allergy Mild Rash Verified 08/23/18 13:52 lisinopril Allergy Cough Verified 08/23/18 13:52 Home Medications: Home Meds Aspirin [Halfprin] 81 mg PO DAILY 08/10/13 [History] Atenolol [Tenormin] 100 mg PO DAILY 08/10/13 [History] Insulin Aspart [NovoLOG] 8 unit SQ TID 08/10/13 [History] Ascorbate Calcium [Vitamin C] 500 mg PO BID 09/06/13 [History] Cranberry 500 mg PO DAILY 09/06/13 [History] Multivitamin [Daily Multiple Vitamin] 1 tab PO DAILY 09/06/13 [History] Magnesium Oxide 1 tab PO BID 12/01/14 [History] Pantoprazole [ProTONIX] 40 mg PO DAILY 12/01/14 [History] Acetaminophen [Tylenol Extra Strength] 1,000 mg PO QID PRN 09/17/15 [History] Insulin NPH Human Isophane [Novolin N] 20 units SQ DAILY 02/13/16 [History] Nystatin/Triamcinolone Crm [Mycolog Crm] 1 applic TOP ASDIRECTED PRN 02/13/16 [ History] Furosemide 40 mg PO DAILY 02/20/16 [History] Losartan [Cozaar] 100 mg PO DAILY 02/20/16 [History] Potassium Chloride [Klor-Con M10] 10 meq PO BIDMEALS 02/20/16 [History] azaTHIOprine [Imuran] 50 mg PO DAILY 03/03/17 [History] hydrOXYzine HCl [Atarax] 10 mg PO DAILY PRN 03/03/17 [History] predniSONE [Prednisone] 17.5 mg PO DAILY 03/03/17 [History] Insulin NPH/Insulin Reg,Human [Novolin 70-30] 8 unit SUBCUT .DINNER 08/23/18 [ History] Levofloxacin 250 mg PO DAILY 08/23/18 [History] hydrALAZINE [Apresoline] 25 mg PO BID 08/23/18 [History] hydroCHLOROthiazide [Hydrochlorothiazide] 12.5 mg PO DAILY 08/23/18 [History] lamoTRIgine [Lamictal] 25 mg PO BID 08/23/18 [History] Past Medical History HEENT History: Reports: Cataract, Impaired Vision, Sinusitis Other HEENT History: wears glasses Cardiovascular History: Reports: High Cholesterol, Hypertension Respiratory History: Reports: None Gastrointestinal History: Reports: Fecal Incontinence, GERD Genitourinary History: Reports: Acute Renal Failure, Diabetic Nephropathy, Hydronephrosis, Pyelonephritis, Urinary Incontinence, UTI, Recurrent, Other ( See Below) Other Genitourinary History: nephrostomy tubes, ureterostomy [employer] History: Reports: Musculoskeletal History: Reports: Arthritis, Other (See Below) Other Musculoskeletal History: DJD Neurological History: Reports: None Psychiatric History: Reports: None Endocrine/Metabolic History: Reports: Diabetes, Type II, IDDM Hematologic History: Reports: None Immunologic History: Reports: None Oncologic (Cancer) History: Reports: Squamous Cell Carcinoma Other Oncologic History: questionable L) breast ca, SCC-lip Dermatologic History: Reports: Eczema, Other (See Below) Other Dermatologic History: reaction to metal chain (necklace) - Infectious Disease History Infectious Disease History: Reports: MRSA Other Infectious Disease History: ? - Past Surgical History Head Surgeries/Procedures: Reports: None HEENT Surgical History: Reports: Adenoidectomy, Cataract Surgery, Tonsillectomy Respiratory Surgical History: Reports: None GI Surgical History: Reports: Appendectomy Female Surgical History: Reports: Breast Biopsy Musculoskeletal Surgical History: Reports: Shoulder Surgery, Other (See Below) Oncologic Surgical History: Reports: Biopsy of Breast Social & Family History - Family History Family Medical History: Noncontributory Cardiac: Reports: CT Oncologic: Reports: Breast, Other (See Below) Other Oncologic Family History: mother-2 types - Tobacco Use Smoking Status *Q: Never Smoker - Caffeine Use Caffeine Use: Reports: None - Recreational Drug Use Recreational Drug Use: No - Living Situation & Occupation Living situation: Reports: Occupation: Retired H&P Review of Systems - Review of Systems: Review Of Systems: See Below General: Reports: Weakness, Fatigue, Decreased Appetite HEENT: Reports: No Symptoms Pulmonary: Reports: Shortness of Breath, Cough, Sputum Cardiovascular: Reports: No Symptoms Gastrointestinal: Reports: No Symptoms Genitourinary: Reports: No Symptoms Musculoskeletal: Reports: No Symptoms Skin: Reports: No Symptoms Psychiatric: Reports: No Symptoms Neurological: Reports: No Symptoms Hematologic/Lymphatic: Reports: No Symptoms Immunologic: Reports: No Symptoms Exam - Exam Exam: See Below - Vital Signs Vital Signs: Last Vital Signs Temp 97.2 F 08/23/18 12:25 Pulse 56 L 08/23/18 12:25 Resp 22 H 08/23/18 12:25 BP 135/50 L 08/23/18 12:25 Pulse Ox 100 08/23/18 12:25 Weight: 143 lb 4.8 oz - Exam Quality Assessment: DVT Prophylaxis General: Alert, Oriented, 4 HEENT: PERRLA, Hearing Intact, Mucosa Moist & [place], Nares Patent, Normal Nasal Septum, Posterior Pharynx Clear, Conjunctiva Clear, EOMI, EACs Clear, TMs Clear Neck: Supple, Trachea Midline, 2 Lungs: Clear to Auscultation, Normal Respiratory Effort Cardiovascular: Regular Rate, Regular Rhythm GI/Abdominal Exam: Normal Bowel Sounds, Soft, Non-Tender, No Organomegaly, No Distention, No Abnormal Bruit, No Mass, Pelvis Stable (Female) Exam: Normal External Exam, Normal Speculum Exam, Normal Bimanual Exam Rectal (Female) Exam: Normal Exam, Normal Rectal Tone Back Exam: Normal Inspection, Full Range of Motion, NT Extremities: Normal Inspection, Normal Range of Motion, Non-Tender, No Pedal Edema, Normal Capillary Refill Skin: Warm, Dry, Intact Neurological: Cranial Nerves Intact, Reflexes Equal Bilateral Neuro Extensive - Mental Status: Alert, Oriented x3, Normal Mood/Affect, Normal Cognition Neuro Extensive - Motor, Sensory, Reflexes: CN II-XII Intact, Normal Gait, Normal Reflexes Psychiatric: Alert, Normal Affect, Normal Mood - Patient Data Lab Results Last 24 hrs: Laboratory Results - last 24 hr 08/23/18 08/23/18 08/23/18 Range/Units 11:05 11:05 11:05 WBC 12.2 H (5.0-10.0) 10^3/uL RBC 3.26 L (4.2-5.4) 10^6/uL Hgb 10.0 L (12.0-16.0) g/dL Hct 30.4 L (37.0-47.0) % MCV 93.3 (80-100) fL MCH 30.7 (27.0-34.0) pg MCHC 32.9 L (33.0-35.0) g/dL Plt Count 465 H D (150-450) 10^3/uL Neut % (Auto) 87.9 H (42.2-75.2) % Lymph % (Auto) 5.5 L (20.5-50.1) % [place] % (Auto) 6.0 (2-8) % Eos % (Auto) 0.5 L (1.0-3.0) % Baso % (Auto) 0.1 (0.0-1.0) % Add Manual Diff Yes Neutrophils % (Manual) 76 H (42-75) % Band Neutrophils % 8 % Lymphocytes % (Manual) 13 L (20-50) % Monocytes % (Manual) 3 (2-8) % Hypochromasia 1+ slight Sodium 132 L (135-145) mmol/L Potassium 4.3 (3.6-5.0) mmol/L Chloride 95 L (101-111) mmol/L Carbon Dioxide 21.0 (21.0-31.0) mmol/L Anion Gap 20.3 BUN 57 H D (7-18) mg/dL Creatinine 2.0 H (0.6-1.3) mg/dL Est Cr Clr Drug Dosing 18.84 mL/min Estimated GFR (MDRD) 24 BUN/Creatinine Ratio 28.50 Glucose 243 H (74-105) mg/dL Lactic Acid (0.5-2.2) mmol/L Calcium 9.3 (8.4-10.2) mg/dl Total Bilirubin 0.7 (0.2-1.0) mg/dL AST 28 (10-42) IU/L ALT 14 (10-60) IU/L Alkaline Phosphatase 63 (42-121) IU/L B-Natriuretic Peptide 774 H (0-100) pg/ml Total Protein 7.7 (6.7-8.2) g/dl Albumin 2.9 L (3.2-5.5) g/dl Globulin 4.8 Albumin/Globulin Ratio 0.60 /05/01 Range/Units 12:00 WBC (5.0-10.0) 10^3/uL RBC (4.2-5.4) 10^6/uL Hgb (12.0-16.0) g/dL Hct (37.0-47.0) % MCV (80-100) fL MCH (27.0-34.0) pg MCHC (33.0-35.0) g/dL Plt Count (150-450) 10^3/uL Neut % (Auto) (42.2-75.2) % Lymph % (Auto) (20.5-50.1) % [place] % (Auto) (2-8) % Eos % (Auto) (1.0-3.0) % Baso % (Auto) (0.0-1.0) % Add Manual Diff Neutrophils % (Manual) (42-75) % Band Neutrophils % % Lymphocytes % (Manual) (20-50) % Monocytes % (Manual) (2-8) % Hypochromasia Sodium (135-145) mmol/L Potassium (3.6-5.0) mmol/L Chloride (101-111) mmol/L Carbon Dioxide (21.0-31.0) mmol/L Anion Gap BUN (7-18) mg/dL Creatinine (0.6-1.3) mg/dL Est Cr Clr Drug Dosing mL/min Estimated GFR (MDRD) BUN/Creatinine Ratio Glucose (74-105) mg/dL Lactic Acid 1.8 (0.5-2.2) mmol/L Calcium (8.4-10.2) mg/dl Total Bilirubin (0.2-1.0) mg/dL AST (10-42) IU/L ALT (10-60) IU/L Alkaline Phosphatase (42-121) IU/L B-Natriuretic Peptide (0-100) pg/ml Total Protein (6.7-8.2) g/dl Albumin (3.2-5.5) g/dl Globulin Albumin/Globulin Ratio Result Diagrams: 08/23/18 11:05 08/23/18 11:05 [place] Results Last 24 hrs: Microbiology 08/23/18 11:00 Influenza Type A Antigen Screen - Final Nasal, Left NEGATIVE INFLUENZA A VIRUS AG Influenza Type B Antigen Screen - Final NEGATIVE INFLUENZA B VIRUS AG - Problem List (1) Pneumonia SNOMED Code(s): 154894587 ICD Code: J18.9 - PNEUMONIA, UNSPECIFIED ORGANISM Status: Acute Current Visit: Yes Qualifiers: Pneumonia type: due to unspecified organism Laterality: bilateral Lung location: lower lobe of lung Qualified Code(s): J18.1 - Lobar pneumonia, unspecified organism (2) CKD (chronic kidney disease) stage 4, GFR 15-29 ml/min SNOMED Code(s): 434108755 ICD Code: N18.4 - CHRONIC KIDNEY DISEASE, STAGE 4 (SEVERE) Status: Acute Current Visit: No (3) Chronic hyponatremia SNOMED Code(s): 94862152 ICD Code: E87.1 - HYPO-OSMOLALITY AND HYPONATREMIA Status: Acute Current Visit: No (4) Congestive heart failure SNOMED Code(s): 64089921 ICD Code: I50.9 - HEART FAILURE, UNSPECIFIED Status: Acute Current Visit : No (5) Diabetes SNOMED Code(s): 34087794 ICD Code: E11.9 - TYPE 2 DIABETES MELLITUS WITHOUT COMPLICATIONS Status: Acute Current Visit: No (6) HTN (hypertension) SNOMED Code(s): 81107335 ICD Code: I10 - ESSENTIAL (PRIMARY) HYPERTENSION Status: Acute Current Visit: No Problem List Initiated/Reviewed/Updated: Yes Orders Last 24hrs: Active Orders 24 hr Category Date Time Status Patient Status [ADT] Routine ADT 08/23/18 13:43 Active Ambulate [RC] ASDIRECTED Care 08/23/18 13:43 Ordered Antiembolic Devices [RC] .Routine Care 08/23/18 13:46 Ordered Intake and Output [RC] QSHIFT Care 08/23/18 13:45 Ordered Notify Provider Vital Signs [RC] ASDIRECTED Care 08/23/18 13:46 Ordered Oxygen Therapy [RC] PRN Care 08/23/18 13:45 Ordered Pulse Oximetry [RC] PRN Care 08/23/18 13:45 Ordered VTE/DVT Education [RC] PER UNIT ROUTINE Care 08/23/18 13:46 Ordered Vital Signs [RC] Q4H Care 08/23/18 13:43 Ordered Consistent Carbohydrate Diet [DIET] Diet 08/23/18 Dinner Ordered BASIC METABOLIC PANEL,BMP [CHEM] AM Lab 08/24/18 05:11 Ordered CBC WITH AUTO DIFF [HEME] AM Lab 08/24/18 05:11 Ordered CULTURE BLOOD [BC] Stat Lab 08/23/18 12:00 Received CULTURE BLOOD [BC] Stat Lab 08/23/18 12:03 Received CULTURE SPUTUM + SMEAR [RM] Routine Lab 08/23/18 13:50 Ordered Acetaminophen [Tylenol] Med 08/23/18 13:43 Ordered 650 mg PO Q4H PRN Azithromycin [Zithromax] 500 mg Med 08/23/18 14:00 Ordered Sodium Chloride 0.9% [Normal Saline] 250 ml IV Q24H Bisacodyl [Dulcolax] Med 08/23/18 13:43 Ordered 10 mg RECTAL DAILY PRN Dextromethorphan/guaiFENesin [Robitussin DM] Med 08/23/18 13:49 Ordered 10 ml PO Q6H PRN Heparin Sodium Med 08/23/18 13:45 Ordered 5,000 units SUBCUT Q12H Magnesium Hydroxide [Milk of Magnesia] Med 08/23/18 13:43 Ordered 30 ml PO BID PRN Sodium Chloride 0.9% [Normal Saline] 1,000 ml Med 08/23/18 14:00 Ordered IV ASDIRECTED cefTRIAXone [Rocephin] 1 gm Med 08/23/18 14:00 Ordered Sodium Chloride 0.9% [Normal Saline] 50 ml IV Q24H Blood Culture x2 Reflex Set [OM.PC] Stat Oth 08/23/18 11:47 Ordered DVT/VTE Prophylaxis Reflex [OM.PC] Routine Oth 08/23/18 13:43 Ordered Code Status [Resuscitation Status] Routine Resus Stat 08/23/18 13:52 Ordered Medication Orders Acetaminophen (Tylenol) 650 mg PO Q4H PRN PRN Reason: Pain (mild 1-3 )/fever Bisacodyl (Dulcolax) 10 mg RECTAL DAILY PRN PRN Reason: Constipation Guaifenesin/Phenylephrine HCl (Robitussin Dm) 10 ml PO Q6H PRN PRN Reason: Cough Heparin Sodium (Porcine) (Heparin Sodium) 5,000 units SUBCUT Q12H [facility]A Azithromycin 500 mg/ Sodium (Chloride) 250 mls @ 250 mls/hr IV Q24H [facility] Ceftriaxone Sodium 1 gm/ (Sodium Chloride) 50 mls @ 50 mls/hr IV Q24H [facility]A Sodium Chloride (Normal Saline) 1,000 mls @ 100 mls/hr IV ASDIRECTED [facility]A Magnesium Hydroxide (Milk Of Magnesia) 30 ml PO BID PRN PRN Reason: Constipation Assessment/Plan Comment:: 83 y/o F with PMH of DM, HTN, CKD IV presenting with cough x 7 days with no response to PO abx. CXR showing b/l lower lobe infiltrate. Community Acquired Pneumonia Admit to medical floor Monitor vitals Blood cx Sputum for gram stain and cx Respiratory pathogen panel test Urine for Legionella Ag and strept Ag. IV Ceftriaxone and Azithromycin IVF Oxygen prn Leukocytosis due to above continue abx cbc in the AM Chronic Hyponatremia Mild Monitor HTN BP witn acceptable limits continue home medications DM-II Continue home medications CKD IV Stable creatinine and GFR monitor renal function closely Generalized PT/OT
[2018-08-23] MEDS ORDERED: hydrOXYzine HCl 10 MG Tab PO PRN (14:11)
[2018-08-23] MEDS: cefTRIAXone 1 GM in Sodium Chloride 0.9% 50 ML IV SCH (15:50)
[2018-08-23] MEDS: Sodium Chloride 0.9% 1,000 ML IV SCH (16:30)
[2018-08-23] MEDS: Azithromycin 500 MG in Sodium Chloride 0.9% 250 ML IV SCH (16:34)
[2018-08-23] MEDS ORDERED: Insulin NPH/Insulin Regular,Human 70-30 100 Units/ML 10 ML Vial SUBCUT SCH (17:00)
[2018-08-23] MEDS ORDERED: Insulin Isophane NPH, Human 100 Units/ML 10 ML Vial SUBCUT SCH (17:00)
[2018-08-23] MEDS: Potassium Chloride 10 MEQ Tab.ER PO SCH (17:43)
[2018-08-23] MEDS: INSULIN NPH HUMAN ISOPHANE SUBCUT SCH (17:44)
[2018-08-23] MEDS: INSULIN ASPART SUBCUT SCH (17:46)
[2018-08-23] MEDS: Heparin Sodium 5,000 Units/ML Vial SUBCUT SCH (21:20)
[2018-08-23] MEDS: Ascorbic Acid 500 MG Tab PO SCH (21:20)
[2018-08-23] MEDS: hydrALAZINE 25 MG Tab PO SCH (21:25)
[2018-08-23] MEDS: guaiFENesin/Dextromethorphan 100-10 MG/5 ML Soln 5 ML Cup PO PRN (21:52)
[2018-08-24] MEDS: Sodium Chloride 0.9% 1,000 ML IV SCH (02:49)
[2018-08-24] MEDS: guaiFENesin/Dextromethorphan 100-10 MG/5 ML Soln 5 ML Cup PO PRN (05:06)
[2018-08-24 07:07] LABS: ANION GAP 17.1
[2018-08-24] MEDS: Potassium Chloride 10 MEQ Tab.ER PO SCH ×2 (08:29→17:17)
[2018-08-24] MEDS: INSULIN NPH HUMAN ISOPHANE SUBCUT SCH ×2 (08:30→20:02)
[2018-08-24] MEDS: INSULIN ASPART SUBCUT SCH ×3 (08:31→20:03)
[2018-08-24] MEDS: Ascorbic Acid 500 MG Tab PO SCH ×2 (08:34→20:25)
[2018-08-24] MEDS ORDERED: Non-Formulary Medication 1 Each (Cranberry [Cranberry] 500 MG) PO SCH (09:00)
[2018-08-24] MEDS: hydrALAZINE 25 MG Tab PO SCH ×2 (09:22→20:25)
[2018-08-24] MEDS: Heparin Sodium 5,000 Units/ML Vial SUBCUT SCH ×2 (09:22→20:26)
[2018-08-24] MEDS: Sodium Chloride 0.9% 10 ML Syringe FLUSH PRN ×4 (11:24→19:21)
--- NOTE | 2018-08-24 12:15 | PCM.PN ---
- General Info Date of Service: 08/24/18 Admission Dx/Problem (Free Text): Admission Diagnosis/Problem Admission Diagnosis/Problem Pneumonia Subjective Update: Frances is 83 y/o F with PMH of DM, HTN who presents with cough of one week duration and this has been getting progressively worse. She was found to have pneumonia. Cxr showed b/l lower infiltrate. She was subsequently admitted. She is started on IV abx. Today she reports feeling better and doing well. Cough is persistent. No fever or chills. Functional Status: Reports: Pain Controlled - Review of Systems General: Reports: No Symptoms HEENT: Reports: No Symptoms Pulmonary: Reports: No Symptoms Cardiovascular: Reports: No Symptoms Gastrointestinal: Reports: No Symptoms Genitourinary: Reports: No Symptoms Musculoskeletal: Reports: No Symptoms Skin: Reports: No Symptoms Neurological: Reports: No Symptoms Psychiatric: Reports: No Symptoms - Patient Data Vitals - Most Recent: Last Vital Signs Temp 99 F 08/24/18 03:13 Pulse 64 08/24/18 03:13 Resp 20 08/24/18 03:13 BP 142/63 H 08/24/18 09:22 Pulse Ox 97 08/24/18 03:13 Weight - Most Recent: 146 lb 12.8 oz I&O - Last 24 Hours: Intake & Output 08/23/18 08/24/18 08/24/18 22:59 06:59 14:59 Intake Total 1101 1007 507 Output Total 175 465 Balance 926 542 507 Lab Results Last 24 Hours: Laboratory Results - last 24 hr 08/23/18 08/23/18 08/23/18 Range/Units 12:00 14:15 16:48 WBC (5.0-10.0) 10^3/uL RBC (4.2-5.4) 10^6/uL Hgb (12.0-16.0) g/dL Hct (37.0-47.0) % MCV (80-100) fL MCH (27.0-34.0) pg MCHC (33.0-35.0) g/dL Plt Count (150-450) 10^3/uL Neut % (Auto) (42.2-75.2) % Lymph % (Auto) (20.5-50.1) % [place] % (Auto) (2-8) % Eos % (Auto) (1.0-3.0) % Baso % (Auto) (0.0-1.0) % Sodium (135-145) mmol/L Potassium (3.6-5.0) mmol/L Chloride (101-111) mmol/L Carbon Dioxide (21.0-31.0) mmol/L Anion Gap BUN (7-18) mg/dL Creatinine (0.6-1.3) mg/dL Est Cr Clr Drug Dosing mL/min Estimated GFR (MDRD) Glucose (74-105) mg/dL POC Glucose 251 H 312 H (83-110) mg/dl Lactic Acid 1.8 (0.5-2.2) mmol/L Calcium (8.4-10.2) mg/dl 08/23/18 08/24/18 08/24/18 Range/Units 20:47 06:15 06:15 WBC 7.8 (5.0-10.0) 10^3/uL RBC 2.71 L (4.2-5.4) 10^6/uL Hgb 8.1 L D (12.0-16.0) g/dL Hct 25.2 L (37.0-47.0) % MCV 93.0 (80-100) fL MCH 29.9 (27.0-34.0) pg MCHC 32.1 L (33.0-35.0) g/dL Plt Count 444 (150-450) 10^3/uL Neut % (Auto) 75.3 H (42.2-75.2) % Lymph % (Auto) 14.2 L (20.5-50.1) % [place] % (Auto) 9.5 H (2-8) % Eos % (Auto) 0.9 L (1.0-3.0) % Baso % (Auto) 0.1 (0.0-1.0) % Sodium 133 L (135-145) mmol/L Potassium 4.1 (3.6-5.0) mmol/L Chloride 101 (101-111) mmol/L Carbon Dioxide 19.0 L (21.0-31.0) mmol/L Anion Gap 17.1 BUN 54 H (7-18) mg/dL Creatinine 1.8 H (0.6-1.3) mg/dL Est Cr Clr Drug Dosing 21.78 mL/min Estimated GFR (MDRD) 27 Glucose 177 H (74-105) mg/dL POC Glucose 251 H (83-110) mg/dl Lactic Acid (0.5-2.2) mmol/L Calcium 8.4 (8.4-10.2) mg/dl 08/24/18 08/24/18 Range/Units 07:44 11:19 WBC (5.0-10.0) 10^3/uL RBC (4.2-5.4) 10^6/uL Hgb (12.0-16.0) g/dL Hct (37.0-47.0) % MCV (80-100) fL MCH (27.0-34.0) pg MCHC (33.0-35.0) g/dL Plt Count (150-450) 10^3/uL Neut % (Auto) (42.2-75.2) % Lymph % (Auto) (20.5-50.1) % [place] % (Auto) (2-8) % Eos % (Auto) (1.0-3.0) % Baso % (Auto) (0.0-1.0) % Sodium (135-145) mmol/L Potassium (3.6-5.0) mmol/L Chloride (101-111) mmol/L Carbon Dioxide (21.0-31.0) mmol/L Anion Gap BUN (7-18) mg/dL Creatinine (0.6-1.3) mg/dL Est Cr Clr Drug Dosing mL/min Estimated GFR (MDRD) Glucose (74-105) mg/dL POC Glucose 179 H 158 H (83-110) mg/dl Lactic Acid (0.5-2.2) mmol/L Calcium (8.4-10.2) mg/dl [place] Results Last 24 Hours: Microbiology 08/23/18 12:03 Aerobic Blood Culture - Preliminary Blood - Venous - Lab Draw NO GROWTH AFTER 1 DAY Anaerobic Blood Culture - Preliminary NO GROWTH AFTER 1 DAY 08/23/18 12:00 Aerobic Blood Culture - Preliminary Blood - Venous NO GROWTH AFTER 1 DAY Anaerobic Blood Culture - Preliminary NO GROWTH AFTER 1 DAY 08/23/18 11:00 Influenza Type A Antigen Screen - Final Nasal, Left NEGATIVE INFLUENZA A VIRUS AG Influenza Type B Antigen Screen - Final NEGATIVE INFLUENZA B VIRUS AG Med Orders - Current: Current Medications Acetaminophen (Tylenol Extra Strength) 1,000 mg PO TID PRN PRN Reason: Pain (mild 1-3) Ascorbic Acid (Vitamin C) 500 mg PO BID [facility] Last Admin: 08/24/18 08:34 Dose: 500 mg Aspirin (Halfprin) 81 mg PO DAILY [facility] Atenolol (Tenormin) 25 mg PO DAILY [facility] Azathioprine (Imuran) 50 mg PO DAILY [facility] Bisacodyl (Dulcolax) 10 mg RECTAL DAILY PRN PRN Reason: Constipation, use 2nd Furosemide (Lasix) 40 mg PO DAILY [facility] Guaifenesin/Phenylephrine HCl (Robitussin Dm) 10 ml PO Q6HR PRN PRN Reason: Cough Last Admin: 08/24/18 05:06 Dose: 10 ml Heparin Sodium (Porcine) (Heparin Sodium) 5,000 units SUBCUT Q12HR [facility] Last Admin: 08/24/18 09:22 Dose: 5,000 units Hydralazine HCl (Apresoline) 25 mg PO BID [facility] Last Admin: 08/24/18 09:22 Dose: 25 mg Hydrochlorothiazide (Hydrochlorothiazide) 12.5 mg PO DAILY [facility] Hydroxyzine HCl (Atarax) 10 mg PO QID PRN PRN Reason: Itching Azithromycin 500 mg/ Sodium (Chloride) 250 mls @ 250 mls/hr IV Q24H [facility] Last Infusion: 08/23/18 18:29 Dose: Infused Ceftriaxone Sodium 1 gm/ (Sodium Chloride) 50 mls @ 100 mls/hr IV Q24H [facility] Last Admin: 08/23/18 15:50 Dose: 100 mls/hr Sodium Chloride (Normal Saline) 1,000 mls @ 100 mls/hr IV ASDIRECTED [facility] Last Admin: 08/24/18 02:49 Dose: 100 mls/hr Lamotrigine (Lamotrigine) 25 mg PO BID [facility] Losartan Potassium (Cozaar) 100 mg PO DAILY [facility] Magnesium Hydroxide (Milk Of Magnesia) 30 ml PO BID PRN PRN Reason: Constipation Magnesium Oxide (Magnesium Oxide) 250 mg PO BID [facility] Last Admin: 08/24/18 08:32 Dose: 250 mg Multivitamins (Thera) 1 each PO DAILY [facility] Non-Formulary Medication (Nf Drug) 1 each PO BEDTIME [facility] Nystatin/Triamcinolone Acetonide (Mycolog Crm) 0 gm TOP ASDIRECTED PRN PRN Reason: Itching Pantoprazole Sodium (Protonix) 40 mg PO DAILY@1200 [facility] Insulin Aspart ( (Novolog) Own Med) 0 each SUBCUT TIDMEALS [facility] Last Admin: 08/24/18 08:31 Dose: 8 each Insulin Nph Human Isophane (Novolin N) *Own Med* 0 each SUBCUT WITHBREAKFAST [facility] Last Admin: 08/24/18 08:30 Dose: 14 each Insulin Nph Human Isophane (Novolin N) *Own Med* 0 each SUBCUT ACDINNER [facility] Last Admin: 08/23/18 17:44 Dose: 1 each Potassium Chloride (Klor-Con 10) 10 meq PO BIDMEALS [facility] Last Admin: 08/24/18 08:29 Dose: 10 meq Prednisone (Prednisone) 10 mg PO DAILY [facility] Sodium Chloride (Saline Flush) 10 ml FLUSH ASDIRECTED PRN PRN Reason: Keep Vein Open Last Admin: 08/24/18 11:24 Dose: 10 ml Discontinued Medications Piperacillin Sod/Tazobactam (Sod 2.25 gm/ Sodium Chloride) 50 mls @ 100 mls/hr IV ONETIME ONE Stop: 08/23/18 12:10 Last Admin: 08/23/18 14:30 Dose: 100 mls/hr Non-Formulary Medication (Cranberry [Cranberry]) 500 mg PO DAILY [facility] - Exam Quality Assessment: DVT Prophylaxis General: Alert, Oriented HEENT: Pupils Equal, Pupils Reactive, EOMI, Mucous Membr. Moist/[place] Neck: Supple Lungs: Clear to Auscultation, Normal Respiratory Effort Cardiovascular: Regular Rate, Regular Rhythm GI/Abdominal Exam: Normal Bowel Sounds, Soft, Non-Tender, No Organomegaly, No Distention, No Abnormal Bruit, No Mass, Pelvis Stable (Female) Exam: Normal External Exam, Normal Speculum Exam, Normal Bimanual Exam Back Exam: Normal Inspection, Full Range of Motion Extremities: Normal Inspection, Normal Range of Motion, Non-Tender, No Pedal Edema, Normal Capillary Refill Skin: Warm, Dry, Intact Wound/Incisions: Healing Well Neurological: No New Focal Deficit Psy/Mental Status: Alert, Normal Affect, Normal Mood - Problem List & Annotations (1) Pneumonia SNOMED Code(s): 881267194 Code(s): J18.9 - PNEUMONIA, UNSPECIFIED ORGANISM Status: Acute Current Visit: Yes Qualifiers: Pneumonia type: due to unspecified organism Laterality: bilateral Lung location: lower lobe of lung Qualified Code(s): J18.1 - Lobar pneumonia, unspecified organism (2) CKD (chronic kidney disease) stage 4, GFR 15-29 ml/min SNOMED Code(s): 480343843 Code(s): N18.4 - CHRONIC KIDNEY DISEASE, STAGE 4 (SEVERE) Status: Acute Current Visit: No (3) Chronic hyponatremia SNOMED Code(s): 12758144 Code(s): E87.1 - HYPO-OSMOLALITY AND HYPONATREMIA Status: Acute Current Visit: No (4) Congestive heart failure SNOMED Code(s): 44029751 Code(s): I50.9 - HEART FAILURE, UNSPECIFIED Status: Acute Current Visit: No (5) Diabetes SNOMED Code(s): 51481945 Code(s): E11.9 - TYPE 2 DIABETES MELLITUS WITHOUT COMPLICATIONS Status: Acute Current Visit: No (6) HTN (hypertension) SNOMED Code(s): 70511404 Code(s): I10 - ESSENTIAL (PRIMARY) HYPERTENSION Status: Acute Current Visit: No - Problem List Review Problem List Initiated/Reviewed/Updated: Yes - My Orders Last 24 Hours: My Active Orders 08/23/18 13:43 Patient Status [ADT] Routine Ambulate [RC] ASDIRECTED Vital Signs [RC] 00,04,08,12,16,20 Bisacodyl [Dulcolax] 10 mg RECTAL DAILY PRN Magnesium Hydroxide [Milk of Magnesia] 30 ml PO BID PRN DVT/VTE Prophylaxis Reflex [OM.PC] Routine 08/23/18 13:45 Intake and Output [RC] QSHIFT Oxygen Therapy [RC] PRN Pulse Oximetry [RC] PRN 08/23/18 13:46 Antiembolic Devices [RC] .Routine Notify Provider Vital Signs [RC] ASDIRECTED VTE/DVT Education [RC] PER UNIT ROUTINE 08/23/18 13:49 Dextromethorphan/guaiFENesin [Robitussin DM] 10 ml PO Q6HR PRN 08/23/18 13:50 CULTURE SPUTUM + SMEAR [RM] Routine 08/23/18 13:52 Code Status [Resuscitation Status] Routine 08/23/18 14:00 Acetaminophen [Tylenol Extra Strength] 1,000 mg PO TID PRN Sodium Chloride 0.9% [Normal Saline] 1,000 ml IV ASDIRECTED 08/23/18 14:10 OT Evaluation and Treatment [CONS] Routine PT Evaluation and Treatment [CONS] Routine 08/23/18 14:11 Nystatin/Triamcinolone Crm [Mycolog Crm] 0 gm TOP ASDIRECTED PRN hydrOXYzine HCl [Atarax] 10 mg PO QID PRN 08/23/18 14:14 POC Glucose [Blood Glucose Check, Bedside] [RC] QIDACANDBED 08/23/18 15:00 cefTRIAXone [Rocephin] 1 gm Sodium Chloride 0.9% [Normal Saline] 50 ml IV Q24H 08/23/18 15:54 Sodium Chloride 0.9% [Saline Flush] 10 ml FLUSH ASDIRECTED PRN 08/23/18 16:00 Azithromycin [Zithromax] 500 mg Sodium Chloride 0.9% [Normal Saline] 250 ml IV Q24H 08/23/18 17:00 Patient's Own Medication [Ptom] 0 each SUBCUT ACDINNER 08/23/18 18:00 Patient's Own Medication [Ptom] 0 each SUBCUT TIDMEALS Potassium Chloride [Klor-Con 10] 10 meq PO BIDMEALS 08/23/18 21:00 Ascorbic Acid [Vitamin C] 500 mg PO BID Heparin Sodium 5,000 units SUBCUT Q12HR Magnesium Oxide 250 mg PO BID hydrALAZINE [Apresoline] 25 mg PO BID 08/23/18 Dinner Consistent Carbohydrate Diet [DIET] 08/24/18 08:00 Patient's Own Medication [Ptom] 0 each SUBCUT WITHBREAKFAST 08/24/18 11:30 Aspirin [Halfprin] 81 mg PO DAILY Atenolol [Tenormin] 25 mg PO DAILY Furosemide [Lasix] 40 mg PO DAILY Losartan [Cozaar] 100 mg PO DAILY Multivitamins,Therapeutic [Thera] 1 each PO DAILY azaTHIOprine [Imuran] 50 mg PO DAILY hydroCHLOROthiazide 12.5 mg PO DAILY predniSONE 10 mg PO DAILY 08/24/18 12:00 Pantoprazole [ProTONIX] 40 mg PO DAILY@1200 08/24/18 21:00 Non-Formulary Medication [NF Drug] 1 each PO BEDTIME lamoTRIgine 25 mg PO BID - Plan Plan:: 83 y/o F with PMH of DM, HTN, CKD IV presenting with cough x 7 days with no response to PO abx. CXR showing b/l lower lobe infiltrate. Community Acquired Pneumonia Follow cultures Continue IV Ceftriaxone and Azithromycin Oxygen prn Leukocytosis due to above Resolved Chronic Hyponatremia Mild Monitor HTN BP within acceptable limits continue home medications DM-II Continue home medications CKD IV Stable creatinine and GFR monitor renal function closely Mild fluid overload Lasix 40 mg daily Generalized PT/OT Diet regular DNR/DNI
[2018-08-24] MEDS ORDERED: guaiFENesin 100 MG/5 ML Soln 5 ML UD Cup PO PRN (12:16)
[2018-08-24] MEDS ORDERED: Benzonatate 100 MG Cap PO PRN (12:17)
[2018-08-24] MEDS: Pantoprazole 40 MG Tab.CR PO SCH (12:23)
[2018-08-24] MEDS: Multivitamins,Therapeutic Tab PO SCH (14:09)
[2018-08-24] MEDS: Furosemide 40 MG Tab PO SCH (14:09)
[2018-08-24] MEDS: Aspirin 81 MG Tab.EC PO SCH ×2 (14:09→14:31)
[2018-08-24] MEDS: predniSONE 10 MG Tab PO SCH (14:09)
[2018-08-24] MEDS: Hydrochlorothiazide 25 MG Tab PO SCH (14:12)
[2018-08-24] MEDS: Atenolol 25 MG Tab PO SCH (14:14)
[2018-08-24] MEDS: Losartan 50 MG Tab PO SCH (14:19)
[2018-08-24] MEDS ORDERED: Dextrose 5%-0.9% NaCl 1,000 ML IV SCH (16:00)
[2018-08-24] MEDS: cefTRIAXone 1 GM in Sodium Chloride 0.9% 50 ML IV SCH (16:09)
[2018-08-24] MEDS: Azithromycin 500 MG in Sodium Chloride 0.9% 250 ML IV SCH (16:51)
[2018-08-24] MEDS: lamoTRIgine 100 MG Tab PO SCH (20:23)
[2018-08-24] MEDS: [UNRECOGNIZED DRUG - OTHER] PO SCH (20:25)
[2018-08-25] MEDS: Hydrochlorothiazide 25 MG Tab PO SCH (08:00)
[2018-08-25] MEDS: Atenolol 25 MG Tab PO SCH (08:01)
[2018-08-25] MEDS: hydrALAZINE 25 MG Tab PO SCH ×3 (08:02→21:32)
[2018-08-25] MEDS: Furosemide 40 MG Tab PO SCH (08:02)
[2018-08-25] MEDS: Heparin Sodium 5,000 Units/ML Vial SUBCUT SCH (08:02)
[2018-08-25] MEDS: Losartan 50 MG Tab PO SCH (08:02)
[2018-08-25] MEDS: predniSONE 10 MG Tab PO SCH (08:02)
[2018-08-25] MEDS: Ascorbic Acid 500 MG Tab PO SCH ×2 (08:02→20:40)
[2018-08-25] MEDS: Multivitamins,Therapeutic Tab PO SCH (08:02)
[2018-08-25] MEDS: Aspirin 81 MG Tab.EC PO SCH (08:02)
[2018-08-25] MEDS: Potassium Chloride 10 MEQ Tab.ER PO SCH ×2 (08:02→17:53)
[2018-08-25] MEDS: INSULIN ASPART SUBCUT SCH ×3 (08:26→17:53)
[2018-08-25] MEDS: INSULIN NPH HUMAN ISOPHANE SUBCUT SCH ×2 (08:27→17:55)
[2018-08-25] MEDS: lamoTRIgine 100 MG Tab PO SCH ×2 (10:05→20:41)
[2018-08-25] MEDS ORDERED: hydrALAZINE 25 MG Tab PO ONE (10:30)
[2018-08-25 11:12] LABS: ANION GAP 15.6
--- NOTE | 2018-08-25 11:47 | PCM.PN ---
- General Info Date of Service: 08/25/18 Admission Dx/Problem (Free Text): Admission Diagnosis/Problem Admission Diagnosis/Problem Pneumonia Subjective Update: Frances is 83 y/o F with PMH of DM, HTN who presents with cough of one week duration and this has been getting progressively worse. She was found to have pneumonia. Cxr showed b/l lower infiltrate. She was subsequently admitted. She is started on IV abx. Today she was seen and examined at bedside. No acute overnight event. Cough improving. No fever or chills. Nurse staff report oozing blood from heparin injection site. No active bleeding now. Functional Status: Reports: Pain Controlled - Review of Systems General: Reports: No Symptoms HEENT: Reports: No Symptoms Pulmonary: Reports: No Symptoms Cardiovascular: Reports: No Symptoms Gastrointestinal: Reports: No Symptoms Genitourinary: Reports: No Symptoms Musculoskeletal: Reports: No Symptoms Skin: Reports: No Symptoms Neurological: Reports: No Symptoms Psychiatric: Reports: No Symptoms - Patient Data Vitals - Most Recent: Last Vital Signs Temp 98 F 08/25/18 11:33 Pulse 71 08/25/18 11:33 Resp 20 08/25/18 11:33 BP 158/72 H 08/25/18 11:33 Pulse Ox 96 08/25/18 11:33 Weight - Most Recent: 150 lb 8 oz I&O - Last 24 Hours: Intake & Output 08/24/18 08/25/18 08/25/18 22:59 06:59 14:59 Intake Total 567 400 835 Output Total 250 1200 675 Balance 317 -800 160 Lab Results Last 24 Hours: Laboratory Results - last 24 hr 08/24/18 08/24/18 08/24/18 Range/Units 16:40 17:15 21:22 WBC (5.0-10.0) 10^3/uL RBC (4.2-5.4) 10^6/uL Hgb (12.0-16.0) g/dL Hct (37.0-47.0) % MCV (80-100) fL MCH (27.0-34.0) pg MCHC (33.0-35.0) g/dL Plt Count (150-450) 10^3/uL Neut % (Auto) (42.2-75.2) % Lymph % (Auto) (20.5-50.1) % [place] % (Auto) (2-8) % Eos % (Auto) (1.0-3.0) % Baso % (Auto) (0.0-1.0) % Sodium (135-145) mmol/L Potassium (3.6-5.0) mmol/L Chloride (101-111) mmol/L Carbon Dioxide (21.0-31.0) mmol/L Anion Gap BUN (7-18) mg/dL Creatinine (0.6-1.3) mg/dL Est Cr Clr Drug Dosing mL/min Estimated GFR (MDRD) Glucose (74-105) mg/dL POC Glucose 56 L 107 309 H (83-110) mg/dl Calcium (8.4-10.2) mg/dl 08/25/18 08/25/18 08/25/18 Range/Units 07:52 10:40 10:40 WBC 12.4 H (5.0-10.0) 10^3/uL RBC 2.93 L (4.2-5.4) 10^6/uL Hgb 8.8 L (12.0-16.0) g/dL Hct 27.4 L (37.0-47.0) % MCV 93.5 (80-100) fL MCH 30.0 (27.0-34.0) pg MCHC 32.1 L (33.0-35.0) g/dL Plt Count 474 H (150-450) 10^3/uL Neut % (Auto) 90.8 H (42.2-75.2) % Lymph % (Auto) 4.1 L (20.5-50.1) % [place] % (Auto) 4.8 (2-8) % Eos % (Auto) 0.2 L (1.0-3.0) % Baso % (Auto) 0.1 (0.0-1.0) % Sodium 133 L (135-145) mmol/L Potassium 4.6 (3.6-5.0) mmol/L Chloride 102 (101-111) mmol/L Carbon Dioxide 20.0 L (21.0-31.0) mmol/L Anion Gap 15.6 BUN 33 H (7-18) mg/dL Creatinine 1.4 H (0.6-1.3) mg/dL Est Cr Clr Drug Dosing 28.00 mL/min Estimated GFR (MDRD) 36 Glucose 180 H (74-105) mg/dL POC Glucose 203 H (83-110) mg/dl Calcium 8.7 (8.4-10.2) mg/dl 08/25/18 Range/Units 11:10 WBC (5.0-10.0) 10^3/uL RBC (4.2-5.4) 10^6/uL Hgb (12.0-16.0) g/dL Hct (37.0-47.0) % MCV (80-100) fL MCH (27.0-34.0) pg MCHC (33.0-35.0) g/dL Plt Count (150-450) 10^3/uL Neut % (Auto) (42.2-75.2) % Lymph % (Auto) (20.5-50.1) % [place] % (Auto) (2-8) % Eos % (Auto) (1.0-3.0) % Baso % (Auto) (0.0-1.0) % Sodium (135-145) mmol/L Potassium (3.6-5.0) mmol/L Chloride (101-111) mmol/L Carbon Dioxide (21.0-31.0) mmol/L Anion Gap BUN (7-18) mg/dL Creatinine (0.6-1.3) mg/dL Est Cr Clr Drug Dosing mL/min Estimated GFR (MDRD) Glucose (74-105) mg/dL POC Glucose 134 H (83-110) mg/dl Calcium (8.4-10.2) mg/dl [place] Results Last 24 Hours: Microbiology 08/23/18 12:03 Aerobic Blood Culture - Preliminary Blood - Venous - Lab Draw NO GROWTH AFTER 1 DAY Anaerobic Blood Culture - Preliminary NO GROWTH AFTER 1 DAY 08/23/18 12:00 Aerobic Blood Culture - Preliminary Blood - Venous NO GROWTH AFTER 1 DAY Anaerobic Blood Culture - Preliminary NO GROWTH AFTER 1 DAY Med Orders - Current: Current Medications Acetaminophen (Tylenol Extra Strength) 1,000 mg PO TID PRN PRN Reason: Pain (mild 1-3) Ascorbic Acid (Vitamin C) 500 mg PO BID [facility] Last Admin: 08/25/18 08:02 Dose: 500 mg Aspirin (Halfprin) 81 mg PO DAILY [facility] Last Admin: 08/25/18 08:02 Dose: 81 mg Atenolol (Tenormin) 25 mg PO DAILY [facility] Last Admin: 08/25/18 08:01 Dose: 25 mg Azathioprine (Imuran) 50 mg PO DAILY [facility] Last Admin: 08/25/18 08:02 Dose: 50 mg Benzonatate (Tessalon Perles) 100 mg PO QID PRN PRN Reason: Cough Bisacodyl (Dulcolax) 10 mg RECTAL DAILY PRN PRN Reason: Constipation, use 2nd Furosemide (Lasix) 40 mg PO DAILY [facility] Last Admin: 08/25/18 08:02 Dose: 40 mg Guaifenesin/Phenylephrine HCl (Robitussin Dm) 10 ml PO Q6HR PRN PRN Reason: Cough Last Admin: 08/24/18 05:06 Dose: 10 ml Heparin Sodium (Porcine) (Heparin Sodium) 5,000 units SUBCUT Q12HR [facility] Last Admin: 08/25/18 08:02 Dose: 5,000 units Hydralazine HCl (Apresoline) 50 mg PO Q8HR [facility] Hydrochlorothiazide (Hydrochlorothiazide) 12.5 mg PO DAILY [facility] Last Admin: 08/25/18 08:00 Dose: 12.5 mg Hydroxyzine HCl (Atarax) 10 mg PO QID PRN PRN Reason: Itching Azithromycin 500 mg/ Sodium (Chloride) 250 mls @ 250 mls/hr IV Q24H [facility] Last Admin: 08/24/18 16:51 Dose: 125 mls/hr Ceftriaxone Sodium 1 gm/ (Sodium Chloride) 50 mls @ 100 mls/hr IV Q24H [facility] Last Admin: 08/24/18 16:09 Dose: 100 mls/hr Lamotrigine (Lamotrigine) 25 mg PO BID [facility] Last Admin: 08/25/18 10:05 Dose: 25 mg Losartan Potassium (Cozaar) 100 mg PO DAILY [facility] Last Admin: 08/25/18 08:02 Dose: 100 mg Magnesium Hydroxide (Milk Of Magnesia) 30 ml PO BID PRN PRN Reason: Constipation Magnesium Oxide (Magnesium Oxide) 250 mg PO BID [facility] Last Admin: 08/25/18 08:02 Dose: 250 mg Multivitamins (Thera) 1 each PO DAILY [facility] Last Admin: 08/25/18 08:02 Dose: 1 each Patients Own (Unisom Gels) 1 each PO BEDTIME [facility] Last Admin: 08/24/18 20:25 Dose: 1 each Nystatin/Triamcinolone Acetonide (Mycolog Crm) 0 gm TOP ASDIRECTED PRN PRN Reason: Itching Pantoprazole Sodium (Protonix) 40 mg PO DAILY@1200 [facility] Last Admin: 08/24/18 12:23 Dose: 40 mg Insulin Aspart ( (Novolog) Own Med) 0 each SUBCUT TIDMEALS [facility] Last Admin: 08/25/18 08:26 Dose: 8 each Insulin Nph Human Isophane (Novolin N) *Own Med* 0 each SUBCUT WITHBREAKFAST [facility] Last Admin: 08/25/18 08:27 Dose: 14 each Insulin Nph Human Isophane (Novolin N) *Own Med* 0 each SUBCUT ACDINNER [facility] Last Admin: 08/24/18 20:02 Dose: Not Given Potassium Chloride (Klor-Con 10) 10 meq PO BIDMEALS [facility] Last Admin: 08/25/18 08:02 Dose: 10 meq Prednisone (Prednisone) 10 mg PO DAILY [facility] Last Admin: 08/25/18 08:02 Dose: 10 mg Sodium Chloride (Saline Flush) 10 ml FLUSH ASDIRECTED PRN PRN Reason: Keep Vein Open Last Admin: 08/24/18 19:21 Dose: 10 ml Discontinued Medications Guaifenesin (Robitussin) 100 mg PO Q6H PRN PRN Reason: Cough Hydralazine HCl (Apresoline) 25 mg PO BID [facility] Last Admin: 08/25/18 08:02 Dose: 25 mg Hydralazine HCl (Apresoline) 25 mg PO ONETIME ONE Stop: 08/25/18 10:31 Last Admin: 08/25/18 11:10 Dose: 25 mg Piperacillin Sod/Tazobactam (Sod 2.25 gm/ Sodium Chloride) 50 mls @ 100 mls/hr IV ONETIME ONE Stop: 08/23/18 12:10 Last Admin: 08/23/18 14:30 Dose: 100 mls/hr Sodium Chloride (Normal Saline) 1,000 mls @ 100 mls/hr IV ASDIRECTED [facility] Last Admin: 08/24/18 02:49 Dose: 100 mls/hr Non-Formulary Medication (Cranberry [Cranberry]) 500 mg PO DAILY [facility] Last Admin: 08/24/18 17:59 Dose: Not Given - Exam Quality Assessment: DVT Prophylaxis General: Alert, Oriented HEENT: Pupils Equal, Pupils Reactive, EOMI, Mucous Membr. Moist/[place] Neck: Supple Lungs: Clear to Auscultation, Normal Respiratory Effort Cardiovascular: Regular Rate, Regular Rhythm GI/Abdominal Exam: Normal Bowel Sounds, Soft, Non-Tender, No Organomegaly, No Distention, No Abnormal Bruit, No Mass, Pelvis Stable (Female) Exam: Normal External Exam, Normal Speculum Exam, Normal Bimanual Exam Back Exam: Normal Inspection, Full Range of Motion Extremities: Normal Inspection, Normal Range of Motion, Non-Tender, No Pedal Edema, Normal Capillary Refill Skin: Warm, Dry, Intact Wound/Incisions: Healing Well Neurological: No New Focal Deficit Psy/Mental Status: Alert, Normal Affect, Normal Mood - Problem List & Annotations (1) Pneumonia SNOMED Code(s): 742838892 Code(s): J18.9 - PNEUMONIA, UNSPECIFIED ORGANISM Status: Acute Current Visit: Yes Qualifiers: Pneumonia type: due to unspecified organism Laterality: bilateral Lung location: lower lobe of lung Qualified Code(s): J18.1 - Lobar pneumonia, unspecified organism (2) CKD (chronic kidney disease) stage 4, GFR 15-29 ml/min SNOMED Code(s): 999553514 Code(s): N18.4 - CHRONIC KIDNEY DISEASE, STAGE 4 (SEVERE) Status: Acute Current Visit: No (3) Chronic hyponatremia SNOMED Code(s): 66718298 Code(s): E87.1 - HYPO-OSMOLALITY AND HYPONATREMIA Status: Acute Current Visit: No (4) Congestive heart failure SNOMED Code(s): 57383236 Code(s): I50.9 - HEART FAILURE, UNSPECIFIED Status: Acute Current Visit: No (5) Diabetes SNOMED Code(s): 60020231 Code(s): E11.9 - TYPE 2 DIABETES MELLITUS WITHOUT COMPLICATIONS Status: Acute Current Visit: No (6) HTN (hypertension) SNOMED Code(s): 77831844 Code(s): I10 - ESSENTIAL (PRIMARY) HYPERTENSION Status: Acute Current Visit: No - Problem List Review Problem List Initiated/Reviewed/Updated: Yes - My Orders Last 24 Hours: My Active Orders 08/24/18 11:30 Aspirin [Halfprin] 81 mg PO DAILY Atenolol [Tenormin] 25 mg PO DAILY Furosemide [Lasix] 40 mg PO DAILY Losartan [Cozaar] 100 mg PO DAILY Multivitamins,Therapeutic [Thera] 1 each PO DAILY azaTHIOprine [Imuran] 50 mg PO DAILY hydroCHLOROthiazide 12.5 mg PO DAILY predniSONE 10 mg PO DAILY 08/24/18 12:00 Pantoprazole [ProTONIX] 40 mg PO DAILY@1200 08/24/18 12:17 Benzonatate [Tessalon Perles] 100 mg PO QID PRN 08/24/18 18:19 Communication Order [RC] ROUTINE 08/24/18 21:00 Non-Formulary Medication [NF Drug] 1 each PO BEDTIME lamoTRIgine 25 mg PO BID 08/25/18 14:00 hydrALAZINE [Apresoline] 50 mg PO Q8HR - Plan Plan:: 83 y/o F with PMH of DM, HTN, CKD IV presenting with cough x 7 days with no response to PO abx. CXR showing b/l lower lobe infiltrate. Community Acquired Pneumonia Follow cultures Continue IV Ceftriaxone and Azithromycin Oxygen prn Leukocytosis due to above Resolved Chronic Hyponatremia Mild Monitor HTN BP still suboptimally controlled will add hydralazine 50 mg tid continue current care Monitor BP closely DM-II Continue home medications CKD IV Stable creatinine and GFR monitor renal function closely Mild fluid overload Lasix 40 mg daily Generalized PT/OT Diet regular DNR/DNI
[2018-08-25] MEDS: Pantoprazole 40 MG Tab.CR PO SCH (12:27)
[2018-08-25] MEDS: cefTRIAXone 1 GM in Sodium Chloride 0.9% 50 ML IV SCH (15:07)
[2018-08-25] MEDS: Azithromycin 500 MG in Sodium Chloride 0.9% 250 ML IV SCH (16:22)
[2018-08-25] MEDS: [UNRECOGNIZED DRUG - OTHER] PO SCH (20:40)
[2018-08-25] MEDS: Sodium Chloride 0.9% 10 ML Syringe FLUSH PRN (20:42)
[2018-08-26] MEDS: hydrALAZINE 25 MG Tab PO SCH ×3 (06:01→13:16)
[2018-08-26] MEDS: INSULIN ASPART SUBCUT SCH ×2 (08:09→12:53)
[2018-08-26] MEDS: INSULIN NPH HUMAN ISOPHANE SUBCUT SCH (08:09)
[2018-08-26] MEDS: Potassium Chloride 10 MEQ Tab.ER PO SCH (08:16)
[2018-08-26] MEDS: Losartan 50 MG Tab PO SCH (08:16)
[2018-08-26] MEDS: Aspirin 81 MG Tab.EC PO SCH (08:17)
[2018-08-26] MEDS: Hydrochlorothiazide 25 MG Tab PO SCH (08:18)
[2018-08-26] MEDS: lamoTRIgine 100 MG Tab PO SCH (08:19)
[2018-08-26] MEDS: Furosemide 40 MG Tab PO SCH (08:20)
[2018-08-26] MEDS: Atenolol 25 MG Tab PO SCH (08:20)
[2018-08-26] MEDS: predniSONE 10 MG Tab PO SCH (08:20)
[2018-08-26] MEDS: Ascorbic Acid 500 MG Tab PO SCH (08:21)
[2018-08-26] MEDS: Multivitamins,Therapeutic Tab PO SCH (08:21)
--- NOTE | 2018-08-26 11:27 | PCM.DCSUM1 ---
Discharge Summary - Hospital Course Free Text/Narrative:: Frances is 83 y/o F with PMH of DM, HTN who presents with cough of one week duration which has been getting progressively worse. She was found to have pneumonia. Cxr showed b/l lower infiltrate. She was subsequently admitted. She received IV abx with improvement. She was seen and examined today and doing well. She will be discharged home in a stable condition on home health service. She will follow up with PCP in 3 days. Diagnosis: Stroke: No - Discharge Data Discharge Date: 08/26/18 Discharge Disposition: Home, W Home Health Agency 06 Condition: Good - Discharge Diagnosis/Problem(s) (1) Pneumonia SNOMED Code(s): 726036262 ICD Code: J18.9 - PNEUMONIA, UNSPECIFIED ORGANISM Status: Acute Current Visit: Yes Qualifiers: Pneumonia type: due to unspecified organism Laterality: bilateral Lung location: lower lobe of lung Qualified Code(s): J18.1 - Lobar pneumonia, unspecified organism (2) CKD (chronic kidney disease) stage 4, GFR 15-29 ml/min SNOMED Code(s): 775635652 ICD Code: N18.4 - CHRONIC KIDNEY DISEASE, STAGE 4 (SEVERE) Status: Acute Current Visit: No (3) Chronic hyponatremia SNOMED Code(s): 29096835 ICD Code: E87.1 - HYPO-OSMOLALITY AND HYPONATREMIA Status: Acute Current Visit: No (4) Congestive heart failure SNOMED Code(s): 48556666 ICD Code: I50.9 - HEART FAILURE, UNSPECIFIED Status: Acute Current Visit : No (5) Diabetes SNOMED Code(s): 05208469 ICD Code: E11.9 - TYPE 2 DIABETES MELLITUS WITHOUT COMPLICATIONS Status: Acute Current Visit: No (6) HTN (hypertension) SNOMED Code(s): 14685472 ICD Code: I10 - ESSENTIAL (PRIMARY) HYPERTENSION Status: Acute Current Visit: No - Patient Summary/Data Consults: Consultations 08/23/18 14:10 OT Evaluation and Treatment [CONS] Routine PT Evaluation and Treatment [CONS] Routine - Patient Instructions Diet: Diabetic Diet Fluid Restriction: 1500 mL Activity: As Tolerated Driving: Do Not Drive Showering/Bathing: May Shower Notify Provider of: Fever, Increased Pain, Swelling and Redness, Nausea and/or Vomiting - Discharge Plan *PRESCRIPTION DRUG MONITORING PROGRAM REVIEWED*: No *COPY OF PRESCRIPTION DRUG MONITORING REPORT IN PATIENT AMAURI: No Prescriptions/Med Rec: Benzonatate [Tessalon Perle] 100 mg PO Q6HR PRN 5 Days capsule PRN Reason: Cough Dextromethorphan/guaiFENesin [Robitussin DM] 10 ml PO Q6HR PRN #1 cup PRN Reason: Cough guaiFENesin/Dextromethorphan [Guaifenesin Dm Syrup] 240 ml PO Q6HR PRN #1 syrup PRN Reason: Cough hydrALAZINE [Apresoline] 50 mg PO Q8HR #60 tablet Amoxicillin/Potassium Clav [Augmentin 500-125 Tablet] 1 each PO BID #14 tablet Home Medications: Home Meds Aspirin [Halfprin] 81 mg PO DAILY 08/10/13 [History] Atenolol [Tenormin] 25 mg PO DAILY 08/10/13 [History] Insulin Aspart [NovoLOG] 8 unit SQ TID 08/10/13 [History] Ascorbate Calcium [Vitamin C] 500 mg PO BID 09/06/13 [History] Cranberry 500 mg PO DAILY 09/06/13 [History] Multivitamin [Daily Multiple Vitamin] 1 tab PO DAILY 09/06/13 [History] Magnesium Oxide 250 mg PO BID 12/01/14 [History] Pantoprazole [ProTONIX] 40 mg PO .NOON 12/01/14 [History] Acetaminophen [Tylenol Extra Strength] 1,000 mg PO TID PRN 09/17/15 [History] Insulin NPH Human Isophane [Novolin N] 14 units SQ QAM 02/13/16 [History] Nystatin/Triamcinolone Crm [Mycolog Crm] 1 applic TOP ASDIRECTED PRN 02/13/16 [ History] Furosemide 40 mg PO DAILY 02/20/16 [History] Losartan [Cozaar] 100 mg PO DAILY 02/20/16 [History] Potassium Chloride [Klor-Con M10] 10 meq PO BIDMEALS 02/20/16 [History] azaTHIOprine [Imuran] 50 mg PO DAILY 03/03/17 [History] hydrOXYzine HCl [Atarax] 10 mg PO QID PRN 03/03/17 [History] predniSONE [Prednisone] 10 mg PO DAILY 03/03/17 [History] Insulin Isophane NPH, Human [NovoLIN N] 8 unit SQ .DINNER 08/23/18 [History] hydroCHLOROthiazide [Hydrochlorothiazide] 12.5 mg PO DAILY 08/23/18 [History] lamoTRIgine [Lamictal] 25 mg PO BID 08/23/18 [History] Amoxicillin/Potassium Clav [Augmentin 500-125 Tablet] 1 each PO BID #14 tablet 08/26/18 [Rx] Benzonatate [Tessalon Perle] 100 mg PO Q6HR PRN 5 Days capsule 08/26/18 [Rx] Dextromethorphan/guaiFENesin [Robitussin DM] 10 ml PO Q6HR PRN #1 cup 08/26/18 [ Rx] guaiFENesin/Dextromethorphan [Guaifenesin Dm Syrup] 240 ml PO Q6HR PRN #1 syrup 08/26/18 [Rx] hydrALAZINE [Apresoline] 50 mg PO Q8HR #60 tablet 08/26/18 [Rx] Oxygen Therapy Mode: Room Air Forms: ED Department Discharge Referrals: PCP,None [Primary Care Provider] - - Discharge Summary/Plan Comment DC Time >30 min.: Yes - General Info Date of Service: 08/26/18 Admission Dx/Problem (Free Text: Admission Diagnosis/Problem Admission Diagnosis/Problem Pneumonia Functional Status: Reports: Pain Controlled - Review of Systems General: Reports: No Symptoms HEENT: Reports: No Symptoms Pulmonary: Reports: Cough Cardiovascular: Reports: No Symptoms Gastrointestinal: Reports: No Symptoms Genitourinary: Reports: No Symptoms Musculoskeletal: Reports: No Symptoms Skin: Reports: No Symptoms Neurological: Reports: No Symptoms Psychiatric: Reports: No Symptoms - Patient Data Vitals - Most Recent: Last Vital Signs Temp 99 F 08/26/18 08:00 Pulse 78 08/26/18 08:20 Resp 20 08/26/18 08:00 BP 152/66 H 08/26/18 08:20 Pulse Ox 94 L 08/26/18 08:00 Weight - Most Recent: 155 lb 3.2 oz I&O - Last 24 hours: Intake & Output 08/25/18 08/26/18 08/26/18 22:59 06:59 14:59 Intake Total 240 1300 360 Output Total 800 1725 Balance -560 -425 360 Lab Results - Last 24 hrs: Laboratory Results - last 24 hr 08/25/18 08/25/18 08/26/18 Range/Units 16:41 20:51 07:05 WBC (5.0-10.0) 10^3/uL RBC (4.2-5.4) 10^6/uL Hgb (12.0-16.0) g/dL Hct (37.0-47.0) % MCV (80-100) fL MCH (27.0-34.0) pg MCHC (33.0-35.0) g/dL Plt Count (150-450) 10^3/uL Neut % (Auto) (42.2-75.2) % Lymph % (Auto) (20.5-50.1) % [place] % (Auto) (2-8) % Eos % (Auto) (1.0-3.0) % Baso % (Auto) (0.0-1.0) % POC Glucose 108 115 H 143 H (83-110) mg/dl 08/26/18 08/26/18 Range/Units 11:03 11:07 WBC 12.8 H (5.0-10.0) 10^3/uL RBC 3.06 L (4.2-5.4) 10^6/uL Hgb 9.2 L (12.0-16.0) g/dL Hct 28.6 L (37.0-47.0) % MCV 93.5 (80-100) fL MCH 30.1 (27.0-34.0) pg MCHC 32.2 L (33.0-35.0) g/dL Plt Count 493 H (150-450) 10^3/uL Neut % (Auto) 86.3 H (42.2-75.2) % Lymph % (Auto) 4.3 L (20.5-50.1) % [place] % (Auto) 8.6 H (2-8) % Eos % (Auto) 0.6 L (1.0-3.0) % Baso % (Auto) 0.2 (0.0-1.0) % POC Glucose 133 H (83-110) mg/dl KATIA Results - Last 24 hrs: Microbiology 08/23/18 12:03 Aerobic Blood Culture - Preliminary Blood - Venous - Lab Draw NO GROWTH AFTER 2 DAYS Anaerobic Blood Culture - Preliminary NO GROWTH AFTER 2 DAYS 08/23/18 12:00 Aerobic Blood Culture - Preliminary Blood - Venous NO GROWTH AFTER 2 DAYS Anaerobic Blood Culture - Preliminary NO GROWTH AFTER 2 DAYS Med Orders - Current: Current Medications Acetaminophen (Tylenol Extra Strength) 1,000 mg PO TID PRN PRN Reason: Pain (mild 1-3) Ascorbic Acid (Vitamin C) 500 mg PO BID [facility] Last Admin: 08/26/18 08:21 Dose: 500 mg Aspirin (Halfprin) 81 mg PO DAILY [facility] Last Admin: 08/26/18 08:17 Dose: 81 mg Atenolol (Tenormin) 25 mg PO DAILY [facility] Last Admin: 08/26/18 08:20 Dose: 25 mg Azathioprine (Imuran) 50 mg PO DAILY [facility] Last Admin: 08/26/18 08:18 Dose: 50 mg Benzonatate (Tessalon Perles) 100 mg PO QID PRN PRN Reason: Cough Bisacodyl (Dulcolax) 10 mg RECTAL DAILY PRN PRN Reason: Constipation, use 2nd Furosemide (Lasix) 40 mg PO DAILY [facility] Last Admin: 08/26/18 08:20 Dose: 40 mg Guaifenesin/Phenylephrine HCl (Robitussin Dm) 10 ml PO Q6HR PRN PRN Reason: Cough Last Admin: 08/24/18 05:06 Dose: 10 ml Hydralazine HCl (Apresoline) 50 mg PO Q8HR [facility] Last Admin: 08/26/18 06:01 Dose: 50 mg Hydrochlorothiazide (Hydrochlorothiazide) 12.5 mg PO DAILY [facility] Last Admin: 08/26/18 08:18 Dose: 12.5 mg Hydroxyzine HCl (Atarax) 10 mg PO QID PRN PRN Reason: Itching Azithromycin 500 mg/ Sodium (Chloride) 250 mls @ 250 mls/hr IV Q24H [facility] Last Admin: 08/25/18 16:22 Dose: 125 mls/hr Ceftriaxone Sodium 1 gm/ (Sodium Chloride) 50 mls @ 100 mls/hr IV Q24H [facility] Last Admin: 08/25/18 15:07 Dose: 100 mls/hr Lamotrigine (Lamotrigine) 25 mg PO BID [facility] Last Admin: 08/26/18 08:19 Dose: 25 mg Losartan Potassium (Cozaar) 100 mg PO DAILY [facility] Last Admin: 08/26/18 08:16 Dose: 100 mg Magnesium Hydroxide (Milk Of Magnesia) 30 ml PO BID PRN PRN Reason: Constipation Magnesium Oxide (Magnesium Oxide) 250 mg PO BID [facility] Last Admin: 08/26/18 08:20 Dose: 250 mg Multivitamins (Thera) 1 each PO DAILY [facility] Last Admin: 08/26/18 08:21 Dose: 1 each Patients Own (Unisom Gels) 1 each PO BEDTIME [facility] Last Admin: 08/25/18 20:40 Dose: 1 each Nystatin/Triamcinolone Acetonide (Mycolog Crm) 0 gm TOP ASDIRECTED PRN PRN Reason: Itching Pantoprazole Sodium (Protonix) 40 mg PO DAILY@1200 [facility] Last Admin: 08/25/18 12:27 Dose: 40 mg Insulin Aspart ( (Novolog) Own Med) 0 each SUBCUT TIDMEALS [facility] Last Admin: 08/26/18 08:09 Dose: 1 each Insulin Nph Human Isophane (Novolin N) *Own Med* 0 each SUBCUT WITHBREAKFAST [facility] Last Admin: 08/26/18 08:09 Dose: 1 each Insulin Nph Human Isophane (Novolin N) *Own Med* 0 each SUBCUT ACDINNER [facility] Last Admin: 08/25/18 17:55 Dose: 8 each Potassium Chloride (Klor-Con 10) 10 meq PO BIDMEALS [facility] Last Admin: 08/26/18 08:16 Dose: 10 meq Prednisone (Prednisone) 10 mg PO DAILY [facility] Last Admin: 08/26/18 08:20 Dose: 10 mg Sodium Chloride (Saline Flush) 10 ml FLUSH ASDIRECTED PRN PRN Reason: Keep Vein Open Last Admin: 08/25/18 20:42 Dose: 10 ml Discontinued Medications Guaifenesin (Robitussin) 100 mg PO Q6H PRN PRN Reason: Cough Heparin Sodium (Porcine) (Heparin Sodium) 5,000 units SUBCUT Q12HR [facility] Last Admin: 08/25/18 08:02 Dose: 5,000 units Hydralazine HCl (Apresoline) 25 mg PO BID [facility] Last Admin: 08/25/18 08:02 Dose: 25 mg Hydralazine HCl (Apresoline) 25 mg PO ONETIME ONE Stop: 08/25/18 10:31 Last Admin: 08/25/18 11:10 Dose: 25 mg Piperacillin Sod/Tazobactam (Sod 2.25 gm/ Sodium Chloride) 50 mls @ 100 mls/hr IV ONETIME ONE Stop: 08/23/18 12:10 Last Admin: 08/23/18 14:30 Dose: 100 mls/hr Sodium Chloride (Normal Saline) 1,000 mls @ 100 mls/hr IV ASDIRECTED [facility] Last Admin: 08/24/18 02:49 Dose: 100 mls/hr Non-Formulary Medication (Cranberry [Cranberry]) 500 mg PO DAILY [facility] Last Admin: 08/24/18 17:59 Dose: Not Given - Exam General: Reports: Alert, Oriented HEENT: Reports: Pupils Equal, Pupils Reactive, EOMI, Mucous Membr. Moist/[place] Neck: Reports: Supple Lungs: Reports: Clear to Auscultation, Normal Respiratory Effort Cardiovascular: Reports: Regular Rate, Regular Rhythm GI/Abdominal Exam: Normal Bowel Sounds, Soft, Non-Tender, No Organomegaly, No Distention, No Abnormal Bruit, No Mass, Pelvis Stable (Female) Exam: Normal External Exam, Normal Speculum Exam, Normal Bimanual Exam Rectal (Female) Exam: Normal Exam, Normal Rectal Tone Back Exam: Reports: Normal Inspection, Full Range of Motion Extremities: Normal Inspection, Normal Range of Motion, Non-Tender, No Pedal Edema, Normal Capillary Refill Skin: Reports: Warm, Dry, Intact Wound/Incisions: Reports: Healing Well Neurological: Reports: No New Focal Deficit Psy/Mental Status: Reports: Alert, Normal Affect, Normal Mood
[2018-08-26 11:28] LABS: ANION GAP 16.4
[2018-08-26] MEDS: Pantoprazole 40 MG Tab.CR PO SCH (12:53)
[2018-08-26 12:58] VITALS: BP 128/38
== END 2018-08-26 14:31 | disposition home health service (06) ==
LOC: DL.ED 10:48 → INTOOBSV 12:12 → DL.MS 12:12
PROVIDERS: ADMIT Student in an Organized Health Care Education/Training Program; ATTEND Student in an Organized Health Care Education/Training Program
DX: J18.1 Lobar pneumonia, unspecified organism (principal); I13.0 Hypertensive heart and chronic kidney disease with heart failure and stage 1 through stage 4 chronic kidney disease, or unspecified chronic kidney disease; E11.22 Type 2 diabetes mellitus with diabetic chronic kidney disease; N18.4 Chronic kidney disease, stage 4 (severe); I50.9 Heart failure, unspecified; E87.1 Hypo-osmolality and hyponatremia; E78.00 Pure hypercholesterolemia, unspecified; Z88.8 Allergy status to other drugs, medicaments and biological substances; Z79.82 Long term (current) use of aspirin; Z79.4 Long term (current) use of insulin; Z79.899 Other long term (current) drug therapy
CPT/HCPCS: 36415; 71045; 80048; 80053; 82962; 83605; 83880; 85025; 87040; 87804; 96361; 96365; 96366; 96367; 96372; 96375; 97162-GP; 97165-GO; 99284-25; A9270-GY; G0378; J0456; J0696; J1644; J2543; J7030; J7050; J7500

== ENCOUNTER 2019-04-24 17:30 | Emergency (ER) | payer MEDICARE, OTHER ==
[2019-04-24 17:49] VITALS: BP 126/56; PULSE 88
[2019-04-24] MEDS ORDERED: Levofloxacin 500 MG Tab PO ONE (18:36)
--- NOTE | 2019-04-24 18:44 | EDM.PDOC ---
ED HPI GENERAL MEDICAL PROBLEM - General Chief Complaint: Genitourinary Problem Stated Complaint: UTI Time Seen by Provider: 04/24/19 18:15 Source of Information: Reports: Patient History Limitations: Reports: No Limitations - History of Present Illness INITIAL COMMENTS - FREE TEXT/NARRATIVE: This 83 yo female patient reports to the ED with her son and a 2 day history of increased back pain along with nausea and vomiting. The patient has bilateral nephrostomy tubes and has had urinary tract infections in the past. The patient reports her symptoms started on Sunday. The patient reports she has not been on antibiotics for about 1 month. Onset Date: 04/22/19 Duration: Constant, Getting Worse Location: Reports: Abdomen, Back Quality: Reports: Other Severity: Severe Improves with: Reports: None Worsens with: Reports: None Context: Reports: Other Associated Symptoms: Reports: No Other Symptoms Upper Abdomen Pain Score (Numeric/FACES): 5 - Related Data Allergies Allergy/AdvReac Type Severity Reaction Status Date / Time chloramphenicol Allergy Mild Rash Verified 11/21/18 14:32 lisinopril Allergy Cough Verified 11/21/18 14:32 Home Meds: Home Meds Aspirin [Halfprin] 81 mg PO DAILY 08/10/13 [History] Insulin Aspart [NovoLOG] 8 unit SQ TIDMEALS 08/10/13 [History] Ascorbate Calcium [Vitamin C] 1,000 mg PO WITHLUNCH 09/06/13 [History] Multivitamin [Daily Multiple Vitamin] 1 tab PO DAILY 09/06/13 [History] Pantoprazole [ProTONIX] 40 mg PO DAILY 12/01/14 [History] Acetaminophen [Tylenol Extra Strength] 1,000 mg PO BID 09/17/15 [History] Insulin NPH Human Isophane [Novolin N] 14 units SQ QAM 02/13/16 [History] Losartan [Cozaar] 100 mg PO DAILY 02/20/16 [History] Potassium Chloride [Klor-Con M10] 10 meq PO BIDMEALS 02/20/16 [History] azaTHIOprine [Imuran] 50 mg PO DAILY 03/03/17 [History] hydrOXYzine HCl [Atarax] 10 mg PO QID PRN 03/03/17 [History] predniSONE [Prednisone] 10 mg PO DAILY 03/03/17 [History] hydroCHLOROthiazide [Hydrochlorothiazide] 12.5 mg PO DAILY 08/23/18 [History] lamoTRIgine [Lamictal] 25 mg PO BID 08/23/18 [History] Benzonatate [Tessalon Perle] 100 mg PO Q6HR PRN 5 Days capsule 08/26/18 [Rx] Atenolol 25 mg PO BID 11/12/18 [History] Furosemide 40 mg PO DAILY 11/12/18 [History] Magnesium Oxide [Magnesium] 500 mg PO WITHLUNCH 11/12/18 [History] Mycophenolate Mofetil [Cellcept] 500 mg PO BID 11/12/18 [History] Nystatin [Nystatin Crm] 1 applic TOP BID 11/12/18 [History] Triamcinolone Acetonide [Triamcinolone Acetonide 0.1% Crm] 1 applic TOP BID PRN 11/12/18 [History] Vit A/Vit C/Vit E/Zinc/Copper [Preservision] 1 tab PO DAILY 11/12/18 [History] diphenhydrAMINE [Benadryl] 25 mg PO BEDTIME 11/12/18 [History] Micafungin [Mycamine] 100 mg IV Q24H #7 vial 12/01/18 [Rx] Past Medical History HEENT History: Reports: Cataract, Impaired Vision, Sinusitis Other HEENT History: wears glasses Cardiovascular History: Reports: High Cholesterol, Hypertension Respiratory History: Reports: None Gastrointestinal History: Reports: Fecal Incontinence, GERD Genitourinary History: Reports: Acute Renal Failure, Diabetic Nephropathy, Hydronephrosis, Pyelonephritis, Urinary Incontinence, UTI, Recurrent, Other ( See Below) Other Genitourinary History: nephrostomy tubes, ureterostomy [employer] History: Reports: Musculoskeletal History: Reports: Arthritis, Other (See Below) Other Musculoskeletal History: DJD Neurological History: Reports: Other (See Below) Other Neuro History: forgetful Psychiatric History: Reports: None Endocrine/Metabolic History: Reports: Diabetes, Type II, IDDM Hematologic History: Reports: None Immunologic History: Reports: None Oncologic (Cancer) History: Reports: Squamous Cell Carcinoma Other Oncologic History: questionable L) breast ca, SCC-lip Dermatologic History: Reports: Eczema, Other (See Below) Other Dermatologic History: reaction to metal chain (necklace) - Infectious Disease History Infectious Disease History: Reports: MRSA Other Infectious Disease History: ? - Past Surgical History Head Surgeries/Procedures: Reports: None Other Musculoskeletal Surgeries/Procedures:: Left shoulder arthrotomy-2013 w/ irrigation et debridement, left foot bone spur-01/2013, hardik. pelvic fracture repair (right - 08/2015), Social & Family History - Family History Family Medical History: Noncontributory Cardiac: Reports: [place] Oncologic: Reports: Breast, Other (See Below) Other Oncologic Family History: mother-2 types - Tobacco Use Smoking Status *Q: Never Smoker Second Hand Smoke Exposure: No - Caffeine Use Caffeine Use: Reports: Coffee - Recreational Drug Use Recreational Drug Use: No - Living Situation & Occupation Living situation: Reports: Occupation: Retired ED ROS GENERAL - Review of Systems Review Of Systems: Comprehensive ROS is negative, except as noted in HPI. ED EXAM, RENAL/ - Physical Exam Exam: See Below Exam Limited By: No Limitations General Appearance: Alert, WD/WN, Moderate Distress Eye Exam: Bilateral Eye: EOMI, Normal Inspection, PERRL Ears: Other (Ruptured eardrum on right) Nose: Normal Inspection, Normal Mucosa, No Blood Throat/Mouth: Normal Inspection, Normal Lips, Normal Teeth, Normal Gums, Normal Oropharynx, Normal Voice, No Airway Compromise Head: Atraumatic, Normocephalic Neck: Normal Inspection, Supple, Non-Tender, Full Range of Motion Respiratory/Chest: No Respiratory Distress, Lungs Clear, Normal Breath Sounds, No Accessory Muscle Use, Chest Non-Tender Cardiovascular: Normal Peripheral Pulses, Regular Rate, Rhythm, No Edema, No Gallop, No JVD, No Murmur, No Rub GI/Abdominal: Normal Bowel Sounds, Soft, No Organomegaly, No Distention, No Abnormal Bruit, No Mass, Tender (diffuse tenderness) (Female) Exam: Deferred Rectal (Female) Exam: Deferred Back Exam: Normal Inspection, Full Range of Motion, NT Extremities: Normal Inspection, Normal Range of Motion, Non-Tender, Normal Capillary Refill, No Pedal Edema Neurological: Alert, Oriented, CN II-XII Intact, Normal Cognition, Normal Gait, Normal Reflexes, No Motor/Sensory Deficits Psychiatric: Normal Affect, Normal Mood Skin Exam: Warm, Dry, Intact, Normal Color, No Rash Lymphatic: No Adenopathy Course - Vital Signs Last Recorded V/S: Last Vital Signs Temp 36.7 C 04/24/19 17:46 Pulse 88 04/24/19 17:46 Resp 16 04/24/19 17:46 BP 126/56 L 04/24/19 17:46 Pulse Ox 99 04/24/19 17:46 - Orders/Labs/Meds Orders: Active Orders 24 hr Category Date Time Status CULTURE URINE [RM] Urgent Lab 04/24/19 18:03 Received Labs: Laboratory Tests 04/24/19 Range/Units 18:03 Urine Color Yellow (YELLOW) Urine Appearance Cloudy (CLEAR) Urine pH 5.5 (5.0-9.0) Ur Specific [place] 1.025 (1.005-1.030) Urine Protein >=300 H (NEGATIVE) Urine Glucose (UA) 100 H (NEGATIVE) Urine Ketones Negative (NEGATIVE) Urine Occult Blood Large H (NEGATIVE) Urine Nitrite Negative (NEGATIVE) Urine Bilirubin Large H (NEGATIVE) Urine Urobilinogen 0.2 (0.2-1.0) mg/dL Ur Leukocyte Esterase Large H (NEGATIVE) Urine RBC 5-10 H /HPF Urine WBC Packed H (0-5/HPF) /HPF Ur Epithelial Cells Few (NOT SEEN) /HPF Urine Bacteria Many H (0-FEW/HPF) /HPF Urine Mucus Moderate H (NOT SEEN) /LPF Meds: Medications Discontinued Medications Generic Name Dose Route Start Last Admin Trade Name Shawanda PRN Reason Stop Dose Admin Levofloxacin 500 mg 04/24/19 18:36 Levaquin PO 04/24/19 18:37 ONETIME ONE - Re-Assessments/Exams Free Text/Narrative Re-Assessment/Exam: 04/24/19 18:49 Discussed the lab results with the patient. The patient would prefer to take oral antibiotics. The patient was encouraged to return if she is not feeling any better. Departure - Departure Time of Disposition: 18:42 Disposition: Home, Self-Care 01 Condition: Fair Clinical Impression: UTI (urinary tract infection) Qualifiers: Urinary tract infection type: site unspecified Hematuria presence: with hematuria Qualified Code(s): N39.0 - Urinary tract infection, site not specified - Discharge Information *PRESCRIPTION DRUG MONITORING PROGRAM REVIEWED*: Not Applicable *COPY OF PRESCRIPTION DRUG MONITORING REPORT IN PATIENT AMAURI: Not Applicable Instructions: Urinary Tract Infection, Adult, [id number] Forms: ED Department Discharge Care Plan Goals: The patient and family were advised of the examination and lab results during the visit. The patient was given an oral dose of Levaquin while in the ED. The patient was discharged with a script for Levaquin (500 mg) to take 1 by mouth daily for 10 days. The patient was encouraged to increase her oral fluid intake. If the patient has any additional symptoms or concerns, the patient should either return to the emergency department or visit her primary are facility. Sepsis Event Note - Evaluation Sepsis Screening Result: No Definite Risk - Focused Exam Vital Signs: Vital Signs Temp Pulse Resp BP Pulse Ox 04/24/19 17:46 36.7 C 88 16 126/56 L 99 Date Exam was Performed: 04/24/19 Time Exam was Performed: 18:44 - My Orders Last 24 Hours: My Active Orders 04/24/19 18:03 CULTURE URINE [RM] Urgent - Assessment/Plan Last 24 Hours: My Active Orders 04/24/19 18:03 CULTURE URINE [RM] Urgent
== END 2019-04-24 18:52 | disposition home or self-care (01) ==
LOC: DL.ED 17:30
DX: N39.0 Urinary tract infection, site not specified (principal); I10 Essential (primary) hypertension; K21.9 Gastro-esophageal reflux disease without esophagitis; E11.40 Type 2 diabetes mellitus with diabetic neuropathy, unspecified; Z88.8 Allergy status to other drugs, medicaments and biological substances; Z79.82 Long term (current) use of aspirin; Z79.899 Other long term (current) drug therapy; Z79.4 Long term (current) use of insulin; Z87.821 Personal history of retained foreign body fully removed
CPT/HCPCS: 81001; 87086; 87088; 87186; 87804; 99284; A9270

== ENCOUNTER 2019-04-26 11:16 | Emergency (ER) | payer MEDICARE, OTHER ==
[2019-04-26] MEDS ORDERED: Sodium Chloride 0.9% 500 ML IV SCH (12:45)
[2019-04-26 12:58] VITALS: BP 100/51; PULSE 105
--- NOTE | 2019-04-26 13:19 | CR ---
EXAMINATION: Chest 1V Frontal SEX: Female AGE: 83 years CLINICAL HISTORY: 83-year-old female emergency department meeting sepsis criteria. INTERPRETATION: (Upright AP portable chest) 1. Less than optimal inspiratory effort crowding and accentuating the lung markings in the bases of this patient with history "large hiatus hernia" and left lower lobe atelectasis/bronchiectasis (probable chronic aspiration). 2. Chronic arthritis both shoulders with severe degenerative destructive changes of the left humeral head. 3. Normal cardiac silhouette without pulmonary vascular congestion, cephalization of flow, alveolar edema or effusion. 4. No new lung mass, hilar lymphadenopathy or focal lobar pneumonia when compared back to 19 November 2018 exam.
[2019-04-26] MEDS ORDERED: Insulin Regular, Human 100 Units/ML 3 ML Vial IV ONE (13:54)
[2019-04-26] MEDS ORDERED: Sodium Chloride 0.9% 500 ML IV ONE (14:01)
--- NOTE | 2019-04-26 14:31 | EDM.PDOC ---
Scribed by Jennifer Mae 04/26/19 [id number] for Karla Reynoso NP ED HPI GENERAL MEDICAL PROBLEM - General Chief Complaint: Genitourinary Problem Stated Complaint: UTI/DEHYDRATION Time Seen by Provider: 04/26/19 12:45 Source of Information: Reports: Patient, Family, Old Records, RN, RN Notes Reviewed History Limitations: Reports: No Limitations - History of Present Illness INITIAL COMMENTS - FREE TEXT/NARRATIVE: Patient presents to ER with son stating she is not feeling well. She is not eating or drinking. On she was in the ER with ear infection and UTI and started on Levaquin. She declined admission at that time. Presents to ER today with hypotension and dizziness which improved after being laid down in bed. Hx of hardik nephrostomy tubes due to neurogenic bladder. Re-discussed with family her code status and she is DNR & DNI but wants full medical treatment. Denies SOB, CP, or abdominal pain. Not eating or drinking. Onset Date: 04/24/19 Duration: Getting Worse Location: Reports: Generalized Quality: Reports: Ache Severity: Moderate Improves with: Reports: None Worsens with: Reports: None Associated Symptoms: Reports: No Other Symptoms Neck Pain Score (Numeric/FACES): 5 - Related Data Allergies Allergy/AdvReac Type Severity Reaction Status Date / Time chloramphenicol Allergy Mild Rash Verified 04/26/19 11:46 lisinopril Allergy Cough Verified 04/26/19 11:46 Home Meds: Home Meds Aspirin [Halfprin] 81 mg PO DAILY 08/10/13 [History] Insulin Aspart [NovoLOG] 8 unit SQ TIDMEALS 08/10/13 [History] Ascorbate Calcium [Vitamin C] 1,000 mg PO WITHLUNCH 09/06/13 [History] Multivitamin [Daily Multiple Vitamin] 1 tab PO DAILY 09/06/13 [History] Pantoprazole [ProTONIX] 40 mg PO DAILY 12/01/14 [History] Acetaminophen [Tylenol Extra Strength] 1,000 mg PO BID 09/17/15 [History] Insulin NPH Human Isophane [Novolin N] 14 units SQ QAM 02/13/16 [History] Losartan [Cozaar] 100 mg PO DAILY 02/20/16 [History] Potassium Chloride [Klor-Con M10] 10 meq PO BIDMEALS 02/20/16 [History] azaTHIOprine [Imuran] 50 mg PO DAILY 03/03/17 [History] hydrOXYzine HCl [Atarax] 10 mg PO QID PRN 03/03/17 [History] predniSONE [Prednisone] 10 mg PO DAILY 03/03/17 [History] hydroCHLOROthiazide [Hydrochlorothiazide] 12.5 mg PO DAILY 08/23/18 [History] lamoTRIgine [Lamictal] 25 mg PO BID 08/23/18 [History] Benzonatate [Tessalon Perle] 100 mg PO Q6HR PRN 5 Days capsule 08/26/18 [Rx] Atenolol 25 mg PO BID 11/12/18 [History] Furosemide 40 mg PO DAILY 11/12/18 [History] Magnesium Oxide [Magnesium] 500 mg PO WITHLUNCH 11/12/18 [History] Mycophenolate Mofetil [Cellcept] 500 mg PO BID 11/12/18 [History] Nystatin [Nystatin Crm] 1 applic TOP BID 11/12/18 [History] Triamcinolone Acetonide [Triamcinolone Acetonide 0.1% Crm] 1 applic TOP BID PRN 11/12/18 [History] Vit A/Vit C/Vit E/Zinc/Copper [Preservision] 1 tab PO DAILY 11/12/18 [History] diphenhydrAMINE [Benadryl] 25 mg PO BEDTIME 11/12/18 [History] Micafungin [Mycamine] 100 mg IV Q24H #7 vial 12/01/18 [Rx] Past Medical History HEENT History: Reports: Cataract, Impaired Vision, Sinusitis Other HEENT History: wears glasses Cardiovascular History: Reports: High Cholesterol, Hypertension Respiratory History: Reports: None Gastrointestinal History: Reports: Fecal Incontinence, GERD Genitourinary History: Reports: Acute Renal Failure, Diabetic Nephropathy, Hydronephrosis, Pyelonephritis, Urinary Incontinence, UTI, Recurrent, Other ( See Below) Other Genitourinary History: nephrostomy tubes, ureterostomy [employer] History: Reports: Musculoskeletal History: Reports: Arthritis, Other (See Below) Other Musculoskeletal History: DJD Neurological History: Reports: Other (See Below) Other Neuro History: forgetful Psychiatric History: Reports: None Endocrine/Metabolic History: Reports: Diabetes, Type II, IDDM Hematologic History: Reports: None Immunologic History: Reports: None Oncologic (Cancer) History: Reports: Squamous Cell Carcinoma Other Oncologic History: questionable L) breast ca, SCC-lip Dermatologic History: Reports: Eczema, Other (See Below) Other Dermatologic History: reaction to metal chain (necklace) - Infectious Disease History Infectious Disease History: Reports: MRSA Other Infectious Disease History: ? - Past Surgical History Head Surgeries/Procedures: Reports: None Other Musculoskeletal Surgeries/Procedures:: Left shoulder arthrotomy-2013 w/ irrigation et debridement, left foot bone spur-01/2013, hardik. pelvic fracture repair (right - 08/2015), Social & Family History - Family History Family Medical History: Noncontributory Cardiac: Reports: [place] Oncologic: Reports: Breast, Other (See Below) Other Oncologic Family History: mother-2 types - Tobacco Use Smoking Status *Q: Never Smoker Second Hand Smoke Exposure: No - Caffeine Use Caffeine Use: Reports: Coffee - Recreational Drug Use Recreational Drug Use: No - Living Situation & Occupation Living situation: Reports: Occupation: Retired ED ROS GENERAL - Review of Systems Review Of Systems: Comprehensive ROS is negative, except as noted in HPI. ED EXAM, RENAL/ - Physical Exam Exam: See Below Exam Limited By: No Limitations General Appearance: Alert, WD/WN, No Apparent Distress Eye Exam: Bilateral Eye: PERRL Ears: Normal External Exam, Normal Canal, Hearing Grossly Normal, Normal TMs Nose: Normal Inspection Throat/Mouth: Other (no redness of tonsils) Head: Atraumatic, Normocephalic Neck: Normal Inspection, Supple, Non-Tender Respiratory/Chest: No Respiratory Distress, Lungs Clear, Normal Breath Sounds, No Accessory Muscle Use, Chest Non-Tender Cardiovascular: Normal Peripheral Pulses, Regular Rate, Rhythm, No Edema, No Gallop, No JVD, No Murmur, No Rub GI/Abdominal: Normal Bowel Sounds, Soft, Non-Tender, No Organomegaly, No Distention, No Abnormal Bruit, No Mass (Female) Exam: Other (bilateral nephrostomy tubes) Rectal (Female) Exam: Deferred Back Exam: Normal Inspection, Full Range of Motion, NT Extremities: Normal Inspection, Normal Range of Motion, Non-Tender, Normal Capillary Refill, No Pedal Edema Neurological: Alert, Oriented, CN II-XII Intact, Normal Gait, Normal Reflexes, No Motor/Sensory Deficits, Other (slow cognitive. mild confused but oriented to surrounding) Psychiatric: Normal Affect, Normal Mood Skin Exam: Warm, Dry, Intact, Normal Color, No Rash Course - Vital Signs Last Recorded V/S: Last Vital Signs Temp 36.2 C 04/26/19 12:57 Pulse 105 H 04/26/19 12:57 Resp 18 04/26/19 12:57 BP 100/51 L 04/26/19 12:57 Pulse Ox 98 04/26/19 12:57 - Orders/Labs/Meds Orders: Active Orders 24 hr Category Date Time Status Blood Glucose Check, Bedside [RC] ONETIME Care 04/26/19 14:14 Active CULTURE BLOOD [BC] Stat Lab 04/26/19 12:05 Received CULTURE BLOOD [BC] Stat Lab 04/26/19 13:01 Received CULTURE URINE [RM] Routine Lab 04/26/19 12:48 Received Blood Culture x2 Reflex Set [OM.PC] Stat Oth 04/26/19 12:34 Ordered Labs: Laboratory Tests 04/26/19 04/26/19 04/26/19 Range/Units 12:05 12:05 12:05 WBC 21.7 H (5.0-10.0) 10^3/uL RBC 3.57 L (4.2-5.4) 10^6/uL Hgb 10.5 L (12.0-16.0) g/dL Hct 30.3 L (37.0-47.0) % MCV 84.9 D (80-100) fL MCH 29.4 (27.0-34.0) pg MCHC 34.7 (33.0-35.0) g/dL Plt Count 195 D (150-450) 10^3/uL Neut % (Auto) 94.5 H (42.2-75.2) % Lymph % (Auto) 3.8 L (20.5-50.1) % [place] % (Auto) 1.6 L (2-8) % Eos % (Auto) 0.1 L (1.0-3.0) % Baso % (Auto) 0.0 (0.0-1.0) % Add Manual Diff Yes Neutrophils % (Manual) 98 H (42-75) % Lymphocytes % (Manual) 1 L (20-50) % Monocytes % (Manual) 1 L (2-8) % Sodium 131 L (135-145) mmol/L Potassium 3.0 L (3.6-5.0) mmol/L Chloride 92 L (101-111) mmol/L Carbon Dioxide 18.0 L (21.0-31.0) mmol/L Anion Gap 24.0 BUN 69 H D (7-18) mg/dL Creatinine 2.2 H (0.6-1.3) mg/dL Est Cr Clr Drug Dosing 15.75 mL/min Estimated GFR (MDRD) 21 BUN/Creatinine Ratio 31.36 Glucose 363 H (74-105) mg/dL POC Glucose (83-110) mg/dl Lactic Acid 3.7 H (0.5-2.2) mmol/L Calcium 9.2 (8.4-10.2) mg/dl Total Bilirubin 5.9 H (0.2-1.0) mg/dL AST 43 H (10-42) IU/L ALT 95 H (10-60) IU/L Alkaline Phosphatase 472 H (42-121) IU/L Total Protein 7.3 (6.7-8.2) g/dl Albumin 3.0 L (3.2-5.5) g/dl Globulin 4.3 Albumin/Globulin Ratio 0.70 Urine Color (YELLOW) Urine Appearance (CLEAR) Urine pH (5.0-9.0) Ur Specific [place] (1.005-1.030) Urine Protein (NEGATIVE) Urine Glucose (UA) (NEGATIVE) Urine Ketones (NEGATIVE) Urine Occult Blood (NEGATIVE) Urine Nitrite (NEGATIVE) Urine Bilirubin (NEGATIVE) Urine Urobilinogen (0.2-1.0) mg/dL Ur Leukocyte Esterase (NEGATIVE) Urine RBC /HPF Urine WBC (0-5/HPF) /HPF Ur Epithelial Cells (NOT SEEN) /HPF Urine Bacteria (0-FEW/HPF) /HPF Granular Casts (NOT SEEN) /LPF 04/26/19 04/26/19 Range/Units 12:48 14:11 WBC (5.0-10.0) 10^3/uL RBC (4.2-5.4) 10^6/uL Hgb (12.0-16.0) g/dL Hct (37.0-47.0) % MCV (80-100) fL MCH (27.0-34.0) pg MCHC (33.0-35.0) g/dL Plt Count (150-450) 10^3/uL Neut % (Auto) (42.2-75.2) % Lymph % (Auto) (20.5-50.1) % [place] % (Auto) (2-8) % Eos % (Auto) (1.0-3.0) % Baso % (Auto) (0.0-1.0) % Add Manual Diff Neutrophils % (Manual) (42-75) % Lymphocytes % (Manual) (20-50) % Monocytes % (Manual) (2-8) % Sodium (135-145) mmol/L Potassium (3.6-5.0) mmol/L Chloride (101-111) mmol/L Carbon Dioxide (21.0-31.0) mmol/L Anion Gap BUN (7-18) mg/dL Creatinine (0.6-1.3) mg/dL Est Cr Clr Drug Dosing mL/min Estimated GFR (MDRD) BUN/Creatinine Ratio Glucose (74-105) mg/dL POC Glucose 334 H (83-110) mg/dl Lactic Acid (0.5-2.2) mmol/L Calcium (8.4-10.2) mg/dl Total Bilirubin (0.2-1.0) mg/dL AST (10-42) IU/L ALT (10-60) IU/L Alkaline Phosphatase (42-121) IU/L Total Protein (6.7-8.2) g/dl Albumin (3.2-5.5) g/dl Globulin Albumin/Globulin Ratio Urine Color Dark yellow (YELLOW) Urine Appearance Cloudy (CLEAR) Urine pH 7.0 (5.0-9.0) Ur Specific [place] 1.020 (1.005-1.030) Urine Protein 100 H (NEGATIVE) Urine Glucose (UA) Negative (NEGATIVE) Urine Ketones Negative (NEGATIVE) Urine Occult Blood Large H (NEGATIVE) Urine Nitrite Negative (NEGATIVE) Urine Bilirubin Large H (NEGATIVE) Urine Urobilinogen 0.2 (0.2-1.0) mg/dL Ur Leukocyte Esterase Small H (NEGATIVE) Urine RBC >100 H /HPF Urine WBC >100 H (0-5/HPF) /HPF Ur Epithelial Cells Few (NOT SEEN) /HPF Urine Bacteria Many H (0-FEW/HPF) /HPF Granular Casts Few (NOT SEEN) /LPF Meds: Medications Discontinued Medications Generic Name Dose Route Start Last Admin Trade Name Shawanda PRN Reason Stop Dose Admin Sodium Chloride 500 mls @ 100 mls/hr 04/26/19 12:45 04/26/19 12:37 Normal Saline IV 100 mls/hr ASDIRECTED KEYA Administration Sodium Chloride 500 mls @ 999 mls/hr 04/26/19 14:01 04/26/19 13:00 Normal Saline IV 04/26/19 14:31 999 mls/hr .BOLUS ONE Administration Ceftriaxone Sodium 1,000 mg/ 100 mls @ 200 mls/hr 04/26/19 14:17 04/26/19 14: 30 Sodium Chloride IV 04/26/19 14:46 200 mls/hr ONETIME ONE Administration Potassium Chloride 10 meq/ 100 mls @ 100 mls/hr 04/26/19 14:47 Premix IV 04/26/19 15:46 ONETIME ONE Insulin Human Regular 5 unit 04/26/19 13:54 04/26/19 14:22 Humulin R IV 04/26/19 13:55 5 units ONETIME ONE Administration - Radiology Interpretation Free Text/Narrative:: Chest x-ray: less than optimal inspiratory effort crowding and accentuating the lung markings in the bases of this patient with history of "large hiatus hernia " and left lower lobe atelectasis/bronchiectasis (probable chronic aspiration). See rad report. - Re-Assessments/Exams Free Text/Narrative Re-Assessment/Exam: 04/26/19 19:20 Glucose 363 - given 5 units regular insulin WBC 21.7 with lactic acid elevated at 3.7; creat 2.2, hypotensive - Urosepsis; given 1 gm Rocephin after blood culture and nephrology tubes cultured. Platelets okay CXR - Large hiatus hernia and left lower lobe atelectasis/bronchiectasis ( probable chronic aspiration). Creat 2.2 - hx of chronic Renal Failure stage 4 ; but today higher creat. Elevated AST ALT with elevated Alk phos BUN 69 Dehydration/sepsis - give IVF NS 1500 ml Urine - High WBC UTI with sepsis Na 131; chronic issue with hyponatremia. Hypotension; improved from BP 81/53 improved with fluids to SBP 118 and still mild tachy 109 Due to her sepsis and renal failure will need higher level of care to [facility]. Acceptance from Hospitalist Dr. Barbosa Sent by ground ALS 04/26/19 19:23 Departure - Departure Time of Disposition: 14:23 Disposition: DC/Tfer to [facility] 02 Condition: Fair Clinical Impression: Sepsis Qualifiers: Sepsis type: sepsis due to unspecified organism Sepsis acute organ dysfunction status: with acute organ dysfunction Severe sepsis acute organ dysfunction type : acute renal failure Acute renal failure type: unspecified Severe sepsis shock status: unspecified Qualified Code(s): A41.9 - Sepsis, unspecified organism; R65.20 - Severe sepsis without septic shock; N17.9 - Acute kidney failure, unspecified - Discharge Information Referrals: PCP,None [Primary Care Provider] - Forms: ED Department Discharge, Interfacility Transfer EMTALA Sepsis Event Note - Evaluation Sepsis Screening Result: No Definite Risk - Focused Exam Vital Signs: Vital Signs Temp Pulse Resp BP Pulse Ox 04/26/19 12:57 36.2 C 105 H 18 100/51 L 98 04/26/19 11:54 36.2 C 109 H 18 81/53 L 100 Date Exam was Performed: 04/26/19 Time Exam was Performed: 19:14 - My Orders Last 24 Hours: My Active Orders 04/26/19 12:05 CULTURE BLOOD [BC] Stat 04/26/19 12:34 Blood Culture x2 Reflex Set [OM.PC] Stat 04/26/19 12:48 CULTURE URINE [RM] Routine 04/26/19 13:01 CULTURE BLOOD [BC] Stat 04/26/19 14:14 Blood Glucose Check, Bedside [RC] ONETIME - Assessment/Plan Last 24 Hours: My Active Orders 04/26/19 12:05 CULTURE BLOOD [BC] Stat 04/26/19 12:34 Blood Culture x2 Reflex Set [OM.PC] Stat 04/26/19 12:48 CULTURE URINE [RM] Routine 04/26/19 13:01 CULTURE BLOOD [BC] Stat 04/26/19 14:14 Blood Glucose Check, Bedside [RC] ONETIME I have read and agree with the documentation that has been completed regarding this visit. By signing this record, I attest that the documentation was completed in my physical presence and is an accurate record of the encounter.
[2019-04-26] MEDS ORDERED: Potassium Chloride 10 MEQ in Premix Bag 1 BAG IV ONE (14:47)
== END 2019-04-26 15:05 ==
LOC: DL.ED 11:16
DX: A41.9 Sepsis, unspecified organism (principal); R65.20 Severe sepsis without septic shock; N17.9 Acute kidney failure, unspecified; I10 Essential (primary) hypertension; E78.00 Pure hypercholesterolemia, unspecified; E11.21 Type 2 diabetes mellitus with diabetic nephropathy; Z79.4 Long term (current) use of insulin; Z79.82 Long term (current) use of aspirin; Z79.899 Other long term (current) drug therapy; Z88.8 Allergy status to other drugs, medicaments and biological substances
CPT/HCPCS: 36415; 71045; 80053; 81001; 82962; 83605; 85025; 87040; 87086; 87088; 87186; 96361; 96365; 99285; J0696; J1815; J7030; J7040; J7050